=== PATIENT | male | born 1935 | race Hispanic/Latino ===

== ENCOUNTER 2023-02-24 20:04 | Emergency (ER) | payer OTHER ==
--- OUTSIDE RECORDS SUMMARY | 2023-02-24 20:10 | XMS REPORT | Continuity of Care Document ---
:1935 Author Organization [facility] t Address [address] [place] [address] [place] [id number] Care Team Providers Name Role Phone Alvino Mahan Attending Clinician Unavailable Payers Payer Name Policy Type Policy Number Effective Date Expiration Date S vince Blue [place] Blue 6 [id number] 2021 [facility] [employer] of [place] 00:00:[address] [facility] MEDICARE MB [id number] 1998 [facility] MEDICARE MB [id number] 1998 [facility] NOVITAS 00:00:00 [facility] Problems Condition Condition Condition Status Onset Resolution Last Treating Co mments Source Name Details Category Date Date Treatment Clinician Date [id number] Primary Problem Comm on osteoarthr Spirit itis of - [facility]I right [facility] [id number] Primary Problem Comm on osteoarthr Spirit itis of - [facility] left [facility] [id number] Type 2 Problem Commo n diabetes Spirit mellitus - [facility] with other [facility] kidney Medical complicati Center on [id number] Primary Problem Comm on osteoarthr Spirit itis of - CHI left knee [facility] Arthritis Arthritis Problem Com mon of both of both Spirit knees knees - [facility] [id number] Primary Problem Comm on osteoarthr Spirit itis of - [facility]I right knee [facility] [id number] Renal Problem Common insufficie Spirit ncy - [facility] [id number] Benign Problem Common prostatic Spirit [facility]plasi - [facility] symptoms present Peripheral Venous Problem Commo n venous insufficie Spirit insufficie ncy - CHI ncy [facility] Type II Diabetes Problem Common diabetes type 2, Spirit mellitus controlled - CH I well [facility] Obesity Other Problem Common obesity Spirit due to - [facility]I excess [facility] Essential Benign Problem Common hypertensi essential Spi rit on HTN - [facility] [id number] Body mass Problem Com mon index [facility] (BMI) - [facility] 32.0-32.9, [facility] [id number] +5th digit Problem Co mmon eff Spirit 12/30/19*Ch - CHI ronic [facility] disease, Medical stage 3 Center (moderate) [id number] Chronic Problem Common sinusitis, [facility] unspecifie - [facility] d location [facility] Osteoarthr Osteoarthr Problem C ommon itis of itis of Spirit multiple multiple - [facility] joints joints [facility] [id number] Stage 3a Problem Comm on chronic Spirit kidney - CHI disease [facility] Calculus Calculus Problem Commo n of kidney of kidney Spir it and ureter and ureter - [facility] [id number] Type 2 Problem Common diabetes Spirit mellitus - CHI with [facility] kidney Center disease [id number] 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 Social History Social Habit Start Date Stop Date Quantity Comments Source History of Tobacco Use Co mmon Spirit [facility] Sex Assigned At Com mon [facility] Smoking Status Start Date Stop Date Source Never Smoker Common [facility] Medications Ordered Filled Start Stop Current Ordering Indication Dosage Frequency Signature Comments Components Source Medication Medication Date Date Medication? Clinician (SIG) Name Name Bupivicaine Bupivicaine 2022-0 No 5mL Common [place] 6-06 Spirit 00:00: - [facility] Carter Kenalog 2022-0 No 1mL Common (Triamcinol (Triamcinol 6-06 S pirit one) one) 00:00: - CHI [facility] Bupivicaine Bupivicaine 2022-0 No 5mL Common [place] La Push 6-06 Spirit 00:00: - [facility] Kenalog Kenalog 2022-0 No 1mL Common (Triamcinol (Triamcinol 6-06 S pirit one) one) 00:00: - CHI 00 [facility] Bupivicaine Bupivicaine 2022-0 No 5mL Common La [place] La Push 6-06 Spirit 00:00: - CHI [facility] Carter Kenalog 2022-0 No 1mL Common (Triamcinol (Triamcinol 6-06 S pirit one) one) 00:00: - CHI 00 [facility] Bupivicaine Bupivicaine 2022-0 No 5mL Common [place] La Push 6-06 Spirit 00:00: - CHI 00 [facility] Kenalog Kenalog 2022-0 No 1mL Common (Triamcinol (Triamcinol 6-06 S pirit one) one) 00:00: - [facility]I [facility] Bupivicaine Bupivicaine 2022-0 No 5mL Common [place] La Push 6-06 Spirit 00:00: - CHI 00 [facility] Kenalog Kenalog 2022-0 No 1mL Common (Triamcinol (Triamcinol 6-06 S pirit one) one) 00:00: - [facility] Bupivicaine Bupivicaine 2022-0 No 5mL Common [place] La Push 6-06 Spirit 00:00: - CHI 00 [facility] Kenalog Kenalog 2022-0 No 1mL Common (Triamcinol (Triamcinol 6-06 S pirit one) one) 00:00: - CHI 00 [facility] Bupivicaine Bupivicaine 2022-0 No 5mL Common La [place] La Push 6-06 Spirit 00:00: - CHI 00 [facility] Kenalog Kenalog 2022-0 No 1mL Common (Triamcinol (Triamcinol 6-06 S pirit one) one) 00:00: - CHI 00 [facility] Bupivicaine Bupivicaine 2022-0 No 5mL Common La Push La Push 5-23 Spirit 00:00: - CHI 00 [facility] Kenalog Kenalog 2022-0 No 1mL Common (Triamcinol (Triamcinol 5-23 S pirit one) one) 00:00: - CHI 00 [facility] Bupivicaine Bupivicaine 2022-0 No 5mL Common La [place] La Push 5-23 Spirit 00:00: - CHI 00 [facility] Kenalog Kenalog 2022-0 No 1mL Common (Triamcinol (Triamcinol 5-23 S pirit one) one) 00:00: - CHI 00 [facility] Bupivicaine Bupivicaine 2022-0 No 5mL Common La Push La Push 5-23 Spirit 00:00: - CHI 00 [facility] Kenalog Kenalog 2022-0 No 1mL Common (Triamcinol (Triamcinol 5-23 S pirit one) one) 00:00: - CHI 00 [facility] Bupivicaine Bupivicaine 2022-0 No 5mL Common La Push La Push 5-23 Spirit 00:00: - CHI 00 [facility] Kenalog Kenalog 2022-0 No 1mL Common (Triamcinol (Triamcinol 5-23 S pirit one) one) 00:00: - CHI 00 [facility] Bupivicaine Bupivicaine 2022-0 No 5mL Common La Push La Push 5-23 Spirit 00:00: - CHI 00 [facility] Kenalog Kenalog 2022-0 No 1mL Common (Triamcinol (Triamcinol 5-23 S pirit one) one) 00:00: - CHI 00 [facility] Bupivicaine Bupivicaine 2022-0 No 5mL Common La Push La Push 5-23 Spirit 00:00: - CHI 00 [facility] Kenalog Kenalog 2022-0 No 1mL Common (Triamcinol (Triamcinol 5-23 S pirit one) one) 00:00: - CHI 00 [facility] Bupivicaine Bupivicaine 2022-0 No 5mL Common La Push La Push 5-23 Spirit 00:00: - CHI 00 [facility] Kenalog Kenalog 2022-0 No 1mL Common (Triamcinol (Triamcinol 5-23 S pirit one) one) 00:00: - CHI 00 [facility] Kenalog Kenalog 2022-0 No 1mL Common (Triamcinol (Triamcinol 2-23 S pirit one) one) 00:00: - CHI 00 [facility] Bupivicaine Bupivicaine 2022-0 No 4mL Common La Push La Push 2-23 Spirit 00:00: - CHI 00 [facility] Kenalog Kenalog 2022-0 No 1mL Common (Triamcinol (Triamcinol 2-23 S pirit one) one) 00:00: - CHI 00 [facility] Bupivicaine Bupivicaine 2022-0 No 4mL Common La Push La Push 2-23 Spirit 00:00: - CHI 00 [facility] Kenalog Kenalog 2022-0 No 1mL Common (Triamcinol (Triamcinol 2-23 S pirit one) one) 00:00: - CHI 00 [facility] Bupivicaine Bupivicaine 2022-0 No 4mL Common La Push La Push 2-23 Spirit 00:00: - CHI 00 [facility] Kenalog Kenalog 2022-0 No 1mL Common (Triamcinol (Triamcinol 2-23 S pirit one) one) 00:00: - CHI 00 [facility] Bupivicaine Bupivicaine 2022-0 No 4mL Common La Push La Push 2-23 Spirit 00:00: - CHI 00 [facility] Kenalog Kenalog 2022-0 No 1mL Common (Triamcinol (Triamcinol 2-23 S pirit one) one) 00:00: - CHI 00 [facility] Bupivicaine Bupivicaine 2022-0 No 4mL Common La Push La Push 2-23 Spirit 00:00: - CHI 00 [facility] Kenalog Kenalog 2022-0 No 1mL Common (Triamcinol (Triamcinol 2-23 S pirit one) one) 00:00: - CHI 00 [facility] Bupivicaine Bupivicaine 2022-0 No 4mL Common La Push La Push 2-23 Spirit 00:00: - CHI 00 [facility] Kenalog Kenalog 2022-0 No 1mL Common (Triamcinol (Triamcinol 2-23 S pirit one) one) 00:00: - CHI 00 [facility] Bupivicaine Bupivicaine 2022-0 No 4mL Common La Push La Push 2-23 Spirit 00:00: - CHI 00 [facility] Kenalog Kenalog 2021-0 No 40mg Common (Triamcinol (Triamcinol 8-09 S pirit one) one) 00:00: - CHI 00 [facility] Bupivicaine Bupivicaine 2021-0 No 2.5mg Common La Push La Push 8- Spirit 00:00: - CHI 00 [facility] Kenalog Kenalog 2021-0 No 40mg Common (Triamcinol (Triamcinol 8-09 S pirit one) one) 00:00: - CHI 00 [facility] Bupivicaine Bupivicaine 2021-0 No 2.5mg Common La Push La Push 8- Spirit 00:00: - CHI 00 [facility] Kenalog Kenalog 2021-0 No 40mg Common (Triamcinol (Triamcinol 8-09 S pirit one) one) 00:00: - CHI 00 [facility] Bupivicaine Bupivicaine 2021-0 No 2.5mg Common La Push La Push 8- Spirit 00:00: - CHI 00 [facility] Kenalog Kenalog 2021-0 No 40mg Common (Triamcinol (Triamcinol 8-09 S pirit one) one) 00:00: - CHI 00 [facility] Bupivicaine Bupivicaine 2021-0 No 2.5mg Common La Push La Push 8- Spirit 00:00: - CHI 00 [facility] Kenalog Kenalog 2021-0 No 40mg Common (Triamcinol (Triamcinol 8-09 S pirit one) one) 00:00: - CHI 00 [facility] Bupivicaine Bupivicaine 2-0 No 2.5mg Common La Push La Push 8 Spirit 00:00: - CHI 00 [facility] Kenalog Kenalog 2-0 No 40mg Common (Triamcinol (Triamcinol 8-09 S pirit one) one) 00:00: - CHI 00 [facility] Bupivicaine Bupivicaine 2-0 No 2.5mg Common La Push La Push 11-06 Spirit 00:00: - CHI 00 [facility] Kenalog Kenalog 2-0 No 40mg Common (Triamcinol (Triamcinol 8- S pirit one) one) 00:00: - CHI 00 [facility] Bupivicaine Bupivicaine 2-0 No 2.5mg Common La Push La Push 11-06 Spirit 00:00: - CHI 00 [facility] Kenalog Kenalog 2-0 No 40mg Common (Triamcinol (Triamcinol 8-09 S pirit one) one) 00:00: - CHI 00 [facility] Bupivicaine Bupivicaine 2-0 No 2.5mg Common La Push La Push 11-06 Spirit 00:00: - CHI 00 [facility] Kenalog Kenalog 2-0 No 40mg Common (Triamcinol (Triamcinol 8-09 S pirit one) one) 00:00: - CHI 00 [facility] Bupivicaine Bupivicaine 2-0 No 2.5mg Common La Push La Push 11-06 Spirit 00:00: - CHI 00 [facility] Kenalog Kenalog 2-0 No 40mg Common (Triamcinol (Triamcinol 8-09 S pirit one) one) 00:00: - CHI 00 [facility] Bupivicaine Bupivicaine 2-0 No 2.5mg Common La Push La Push 11-06 Spirit 00:00: - CHI 00 [facility] Bupivicaine Bupivicaine 2-0 No 2.5mg Common La Push La Push 10-22 Spirit 00:00: - CHI 00 [facility] Kenalog Kenalog 2021-0 No 40mg Common (Triamcinol (Triamcinol 7-25 S pirit one) one) 00:00: - CHI 00 [facility] Bupivicaine Bupivicaine 2021-0 No 2.5mg Common La Push La Push 7-25 Spirit 00:00: - CHI 00 [facility] Kenalog Kenalog 2021-0 No 40mg Common (Triamcinol (Triamcinol 7-25 S pirit one) one) 00:00: - CHI 00 [facility] Bupivicaine Bupivicaine 2021-0 No 2.5mg Common La Push La Push 7-25 Spirit 00:00: - CHI 00 [facility] Kenalog Kenalog 2021-0 No 40mg Common (Triamcinol (Triamcinol 7-25 S pirit one) one) 00:00: - CHI 00 [facility] Bupivicaine Bupivicaine 2021-0 No 2.5mg Common La Push La Push 7-25 Spirit 00:00: - CHI 00 [facility] Kenalog Kenalog 2021-0 No 40mg Common (Triamcinol (Triamcinol 7-25 S pirit one) one) 00:00: - CHI 00 [facility] Bupivicaine Bupivicaine 2021-0 No 2.5mg Common La Push La Push 7-25 Spirit 00:00: - CHI 00 [facility] Kenalog Kenalog 2021-0 No 40mg Common (Triamcinol (Triamcinol 7-25 S pirit one) one) 00:00: - CHI 00 [facility] Bupivicaine Bupivicaine 2021-0 No 2.5mg Common La Push La Push 7-25 Spirit 00:00: - CHI 00 [facility] Kenalog Kenalog 2021-0 No 40mg Common (Triamcinol (Triamcinol 7-25 S pirit one) one) 00:00: - CHI 00 [facility] Bupivicaine Bupivicaine 2021-0 No 2.5mg Common La Push La Push 7-25 Spirit 00:00: - CHI 00 [facility] Kenalog Kenalog 2021-0 No 40mg Common (Triamcinol (Triamcinol 7-25 S pirit one) one) 00:00: - CHI 00 [facility] Bupivicaine Bupivicaine 0 No 2.5mg Common La Push La Push 7-25 Spirit 00:00: - CHI 00 [facility] Kenalog Kenalog No 40mg Common (Triamcinol (Triamcinol 7-25 S pirit one) one) 00:00: - CHI 00 [facility] Bupivicaine Bupivicaine 0 No 2.5mg Common La Push La Push 7-25 Spirit 00:00: - CHI 00 [facility] Kenalog Kenalog No 40mg Common (Triamcinol (Triamcinol 7-25 S pirit one) one) 00:00: - CHI 00 [facility] Bupivicaine Bupivicaine 0 No 2.5mg Common La Push La Push 7-25 Spirit 00:00: - CHI 00 [facility] Kenalog Kenalog No 40mg Common (Triamcinol (Triamcinol 7-25 S pirit one) one) 00:00: - CHI 00 [facility] Bupivicaine Bupivicaine 0 No 2.5mg Common La Push La Push 7-25 Spirit 00:00: - CHI 00 [facility] Kenalog Kenalog No 40mg Common (Triamcinol (Triamcinol 7-25 S pirit one) one) 00:00: - CHI 00 [facility] Colchicine Colchicine 2018- Yes Alvino 2 caps x 1 Common 1-06 Mahan then 1 Spirit 00:00: caps po 1 - CHI 00 hour later [address] Kenalog Kenalog 2018-03 No 40mg Common (Triamcinol (Triamcinol 1-06 S pirit one) one) 00:00: - CHI 00 [facility] Kenalog Kenalog 2018- No 40mg Common (Triamcinol (Triamcinol 1-06 S pirit one) one) 00:00: - CHI 00 [facility] Kenalog Kenalog 2018-03 No 40mg Common (Triamcinol (Triamcinol 1-06 S pirit one) one) 00:00: - CHI 00 [facility] Carter Kenalog 2019- No 40mg Common (Triamcinol (Triamcinol 1-06 S pirit one) one) 00:00: - CHI 00 [facility] Carter Kenalog 2019- No 40mg Common (Triamcinol (Triamcinol 1-06 S pirit one) one) 00:00: - CHI 00 [facility] [place] Kenrené 2019- No 40mg Common (Triamcinol (Triamcinol 1-06 S pirit one) one) 00:00: - CHI 00 [facility] Carter Kenrené 2019- No 40mg Common (Triamcinol (Triamcinol 1-06 S pirit one) one) 00:00: - CHI 00 [facility] Carter Kenrené 2019- No 40mg Common (Triamcinol (Triamcinol 1-06 S pirit one) one) 00:00: - CHI 00 [facility] Carter Kenrené 2019- No 40mg Common (Triamcinol (Triamcinol 1-06 S pirit one) one) 00:00: - CHI 00 [facility] Carter Kenrené 2019- No 40mg Common (Triamcinol (Triamcinol 1-06 S pirit one) one) 00:00: - CHI 00 [facility] Carter Kenrené 2019- No 40mg Common (Triamcinol (Triamcinol 1-06 S pirit one) one) 00:00: - CHI 00 [facility] Kenrené Kenrené 2019- No 40mg Common (Triamcinol (Triamcinol 1-06 S pirit one) one) 00:00: - CHI 00 [facility] Kenrené Kenalog 2019- No 40mg Common (Triamcinol (Triamcinol 1-06 S pirit one) one) 00:00: - CHI 00 [facility] Kenrené Kenalog 2019- No 40mg Common (Triamcinol (Triamcinol 1-06 S pirit one) one) 00:00: - CHI 00 [facility] Carter Kenalog 2019- No 40mg Common (Triamcinol (Triamcinol 1-06 S pirit one) one) 00:00: - CHI 00 [facility] Metformin Metformin Yes Alvino 1 tablet Common HCl HCl Mahan with meals [facility] Tamsulosin Tamsulosin Yes Alvino TAKE 1 Common HCl HCl Mahan ORAL Spirit CAPSULE 2 - CHI TIMES [facility] Zestoretic Zestoretic Yes Alvino 1 tablet Common Mahan [facility] Aspir-81 Aspir-81 Yes Alvino 1 tablet C ommon Mahan [facility] Allopurinol Allopurinol Yes Alvino 1 tablet Common Mahan [facility] Aspirin 81 Aspirin 81 No 1{table QD Aspirin 81 81 MG 81 MG t} 81 MG Allopurinol Allopurinol No 1{table QD Allopurino 300 MG 300 MG t} l 300 MG Flomax 0.4 Flomax 0.4 No 1{capsu QD Flomax 0.4 MG MG le} MG Flomax 0.4 Flomax 0.4 No 1{capsu QD Flomax 0.4 MG MG le} MG Fluticasone Fluticasone No 1{spray QD Fluticason Propionate Propionate _in_eac e 50 MCG/ACT 50 MCG/ACT h_nostr Propionate il} 50 MCG/ACT Zestoretic Zestoretic No 1{table QD Zestoretic 20-12.5 MG 20-12.5 MG t} 20-12.5 MG Zestoretic Zestoretic No 1{table QD Zestoretic 20-12.5 MG 20-12.5 MG t} 20-12.5 MG Aspirin 81 Aspirin 81 No 1{table QD Aspirin 81 81 MG 81 MG t} 81 MG Lisinopril- Lisinopril- No Lisinopril hydroCHLORO hydroCHLORO -hydroCHLO thiazide thiazide ROthiazide 20-12.5 MG 20-12.5 MG 20-12.5 MG Flomax 0.4 Flomax 0.4 No 1{capsu QD Flomax 0.4 MG MG le} MG Tamsulosin Tamsulosin No Tamsulosin HCl 0.4 MG HCl 0.4 MG HCl 0.4 MG Fluticasone Fluticasone No 1{spray QD Fluticason Propionate Propionate _in_eac e 50 MCG/ACT 50 MCG/ACT h_nostr Propionate il} 50 MCG/ACT Allopurinol Allopurinol No Allopurino 300 MG 300 MG l 300 MG Zestoretic Zestoretic No 1{table QD Zestoretic 20-12.5 MG 20-12.5 MG t} 20-12.5 MG Flomax 0.4 Flomax 0.4 No 1{capsu QD Flomax 0.4 MG MG le} MG Zestoretic Zestoretic No 1{table QD Zestoretic 20-12.5 MG 20-12.5 MG t} 20-12.5 MG Lisinopril- Lisinopril- No 1{table QD Lisinopril hydroCHLORO hydroCHLORO t} -hydroCHLO thiazide thiazide ROthiazide 20-12.5 MG 20-12.5 MG 20-12.5 MG Allopurinol Allopurinol No 1{table QD Allopurino 300 MG 300 MG t} l 300 MG Flomax 0.4 Flomax 0.4 No 1{capsu QD Flomax 0.4 MG MG le} MG Zestoretic Zestoretic No 1{table QD Zestoretic 20-12.5 MG 20-12.5 MG t} 20-12.5 MG Lisinopril- Lisinopril- No 1{table QD Lisinopril hydroCHLORO hydroCHLORO t} -hydroCHLO thiazide thiazide ROthiazide 20-12.5 MG 20-12.5 MG 20-12.5 MG Allopurinol Allopurinol No 1{table QD Allopurino 300 MG 300 MG t} l 300 MG Lisinopril- Lisinopril- No 1{table QD Lisinopril hydroCHLORO hydroCHLORO t} -hydroCHLO thiazide thiazide ROthiazide 20-12.5 MG 20-12.5 MG 20-12.5 MG Zestoretic Zestoretic No 1{table QD Zestoretic 20-12.5 MG 20-12.5 MG t} 20-12.5 MG Flomax 0.4 Flomax 0.4 No 1{capsu QD Flomax 0.4 MG MG le} MG Aspirin Aspirin No Aspirin Allopurinol Allopurinol No 1{table QD Allopurino 300 MG 300 MG t} l 300 MG Allopurinol Allopurinol No 1{table QD Allopurino 300 MG 300 MG t} l 300 MG Aspirin Aspirin No Aspirin Flomax 0.4 Flomax 0.4 No 1{capsu QD Flomax 0.4 MG MG le} MG Zestoretic Zestoretic No 1{table QD Zestoretic 20-12.5 MG 20-12.5 MG t} 20-12.5 MG Lisinopril- Lisinopril- No 1{table QD Lisinopril hydroCHLORO hydroCHLORO t} -hydroCHLO thiazide thiazide ROthiazide 20-12.5 MG 20-12.5 MG 20-12.5 MG Zestoretic Zestoretic No 1{table QD Zestoretic 20-12.5 MG 20-12.5 MG t} 20-12.5 MG Allopurinol Allopurinol No Allopurino 300 MG 300 MG l 300 MG Aspirin Aspirin No Aspirin Tamsulosin Tamsulosin No Tamsulosin HCl 0.4 MG HCl 0.4 MG HCl 0.4 MG Flomax 0.4 Flomax 0.4 No 1{capsu QD Flomax 0.4 MG MG le} MG Lisinopril- Lisinopril- No Lisinopril hydroCHLORO hydroCHLORO -hydroCHLO thiazide thiazide ROthiazide 20-12.5 MG 20-12.5 MG 20-12.5 MG Zestoretic Zestoretic No 1{table QD Zestoretic 20-12.5 MG 20-12.5 MG t} 20-12.5 MG Allopurinol Allopurinol No Allopurino 300 MG 300 MG l 300 MG metFORMIN metFORMIN No 1{table QD metFORMIN HCl 500 MG HCl 500 MG t_with_ HCl 500 MG a_meal} Tamsulosin Tamsulosin No Tamsulosin HCl 0.4 MG HCl 0.4 MG HCl 0.4 MG Allopurinol Allopurinol No 1{table QD Allopurino 300 MG 300 MG t} l 300 MG Aspirin Aspirin No Aspirin Flomax 0.4 Flomax 0.4 No 1{capsu QD Flomax 0.4 MG MG le} MG Lisinopril- Lisinopril- No Lisinopril hydroCHLORO hydroCHLORO -hydroCHLO thiazide thiazide ROthiazide 20-12.5 MG 20-12.5 MG 20-12.5 MG Tamsulosin Tamsulosin No Tamsulosin HCl 0.4 MG HCl 0.4 MG HCl 0.4 MG Allopurinol Allopurinol No Allopurino 300 MG 300 MG l 300 MG Aspirin Aspirin No Aspirin metFORMIN metFORMIN No metFORMIN HCl 500 MG HCl 500 MG HCl 500 MG Lisinopril- Lisinopril- No Lisinopril hydroCHLORO hydroCHLORO -hydroCHLO thiazide thiazide ROthiazide 20-12.5 MG 20-12.5 MG 20-12.5 MG Allopurinol Allopurinol No 1{table QD Allopurino 300 MG 300 MG t} l 300 MG Tamsulosin Tamsulosin No Tamsulosin HCl 0.4 MG HCl 0.4 MG HCl 0.4 MG Allopurinol Allopurinol No Allopurino 300 MG 300 MG l 300 MG Aspirin Aspirin No Aspirin metFORMIN metFORMIN No metFORMIN HCl 500 MG HCl 500 MG HCl 500 MG Lisinopril- Lisinopril- No Lisinopril hydroCHLORO hydroCHLORO -hydroCHLO thiazide thiazide ROthiazide 20-12.5 MG 20-12.5 MG 20-12.5 MG Allopurinol Allopurinol No 1{table QD Allopurino 300 MG 300 MG t} l 300 MG Tamsulosin Tamsulosin No Tamsulosin HCl 0.4 MG HCl 0.4 MG HCl 0.4 MG Allopurinol Allopurinol No Allopurino 300 MG 300 MG l 300 MG Aspirin Aspirin No Aspirin metFORMIN metFORMIN No metFORMIN HCl 500 MG HCl 500 MG HCl 500 MG Lisinopril- Lisinopril- No Lisinopril hydroCHLORO hydroCHLORO -hydroCHLO thiazide thiazide ROthiazide 20-12.5 MG 20-12.5 MG 20-12.5 MG Allopurinol Allopurinol No 1{table QD Allopurino 300 MG 300 MG t} l 300 MG Tamsulosin Tamsulosin No Tamsulosin HCl 0.4 MG HCl 0.4 MG HCl 0.4 MG Allopurinol Allopurinol No Allopurino 300 MG 300 MG l 300 MG Aspirin Aspirin No Aspirin metFORMIN metFORMIN No metFORMIN HCl 500 MG HCl 500 MG HCl 500 MG Lisinopril- Lisinopril- No Lisinopril hydroCHLORO hydroCHLORO -hydroCHLO thiazide thiazide ROthiazide 20-12.5 MG 20-12.5 MG 20-12.5 MG Allopurinol Allopurinol No 1{table QD Allopurino 300 MG 300 MG t} l 300 MG Tamsulosin Tamsulosin No Tamsulosin HCl 0.4 MG HCl 0.4 MG HCl 0.4 MG Allopurinol Allopurinol No Allopurino 300 MG 300 MG l 300 MG Aspirin Aspirin No Aspirin metFORMIN metFORMIN No metFORMIN HCl 500 MG HCl 500 MG HCl 500 MG Lisinopril- Lisinopril- No Lisinopril hydroCHLORO hydroCHLORO -hydroCHLO thiazide thiazide ROthiazide 20-12.5 MG 20-12.5 MG 20-12.5 MG Allopurinol Allopurinol No 1{table QD Allopurino 300 MG 300 MG t} l 300 MG Tamsulosin Tamsulosin No Tamsulosin HCl 0.4 MG HCl 0.4 MG HCl 0.4 MG Allopurinol Allopurinol No Allopurino 300 MG 300 MG l 300 MG Aspirin Aspirin No Aspirin metFORMIN metFORMIN No metFORMIN HCl 500 MG HCl 500 MG HCl 500 MG Lisinopril- Lisinopril- No Lisinopril hydroCHLORO hydroCHLORO -hydroCHLO thiazide thiazide ROthiazide 20-12.5 MG 20-12.5 MG 20-12.5 MG Allopurinol Allopurinol No 1{table QD Allopurino 300 MG 300 MG t} l 300 MG Tamsulosin Tamsulosin No Tamsulosin HCl 0.4 MG HCl 0.4 MG HCl 0.4 MG Allopurinol Allopurinol No Allopurino 300 MG 300 MG l 300 MG Aspirin Aspirin No Aspirin metFORMIN metFORMIN No metFORMIN HCl 500 MG HCl 500 MG HCl 500 MG Lisinopril- Lisinopril- No Lisinopril hydroCHLORO hydroCHLORO -hydroCHLO thiazide thiazide ROthiazide 20-12.5 MG 20-12.5 MG 20-12.5 MG Allopurinol Allopurinol No 1{table QD Allopurino 300 MG 300 MG t} l 300 MG Allopurinol Allopurinol No Allopurino 300 MG 300 MG l 300 MG Flomax 0.4 Flomax 0.4 No 1{capsu QD Flomax 0.4 MG MG le} MG Allopurinol Allopurinol No 1{table QD Allopurino 300 MG 300 MG t} l 300 MG Zestoretic Zestoretic No 1{table QD Zestoretic 20-12.5 MG 20-12.5 MG t} 20-12.5 MG Allopurinol Allopurinol No 1{table QD Allopurino 300 MG 300 MG t} l 300 MG Flomax 0.4 Flomax 0.4 No 1{capsu QD Flomax 0.4 MG MG le} MG Allopurinol Allopurinol No Allopurino 300 MG 300 MG l 300 MG Zestoretic Zestoretic No 1{table QD Zestoretic 20-12.5 MG 20-12.5 MG t} 20-12.5 MG Flomax Flomax 2020- No Alvino 1 capsule Com 01-21 [facility] 00:00 - [facility] :00 [facility] Immunizations Ordered Filled Immunization Date Status Comments [facility] e [facility] [address] 2021-02-28 Completed [facility] Vaccine (Low Dose Vaccine (Low Dose 11:58:00 - [facility]28 Com[facility] Vaccine (Low Dose Vaccine (Low Dose 11:58:00 - [facility] Booster[facility] Booster) [facility] [facility]-02-28 Completed [facility] Vaccine (Low Dose Vaccine (Low Dose 11:58:00 - [facility] Booster) Booster) [facility] [address] [facility] 2021-02-28 Completed [facility] Vaccine (Low Dose Vaccine (Low Dose 11:58:00 - [facility] Booster) Booster) [facility] COVID[address] [facility] 2021-02-28 Completed [facility] Vaccine (Low Dose Vaccine (Low Dose 11:58:00 - [facility] Booster) Booster) [facility] [address] [facility] 2021-02-28 Completed [facility] Vaccine (Low Dose Vaccine (Low Dose 11:58:00 - [facility] Booster) Booster) [facility] [address] [facility] 2021-02-28 Completed [facility] Vaccine (Low Dose Vaccine (Low Dose 11:58:00 - [facility] Booster) Booster) [facility] Moderna COVID-19 Moderna COVID-19 2021-02-28 Completed [facility] Vaccine (Low Dose Vaccine (Low Dose 11:58:00 - [facility] Booster) Booster) [facility] Moderna COVID-19 Moderna COVID-19 2021-02-28 Completed [facility] Vaccine (Low Dose Vaccine (Low Dose 11:58:00 - [facility] Booster) Booster) [facility] Fluzone Fluzone 2021-02-20 Completed [facility] 09:33:00 - [facility] Fluzone Fluzone 2021-02-20 Completed [facility] 09:33:00 [facility] Fluzone Fluzone 2021-02-20 Completed [facility] 09:33:00 [facility] Fluzone Fluzone 2021-02-20 Completed [facility] 09:33:00 [facility] Fluzone Fluzone 2021-02-20 Completed [facility] 09:33:00 [facility] Fluzone Fluzone 2021-02-20 Completed [facility] 09:33:00 - [facility] Fluzone Fluzone 2021-02-20 Completed [facility] 09:33:00 [facility] Fluzone Fluzone 2021-02-20 Completed [facility] 09:33:00 [facility] Fluzone Fluzone 2021-02-20 Completed [facility] 09:33:00 [facility] Fluzone Fluzone 2021-02-20 Com[facility] COVID-19 2020-07-18 Completed [facility] Vaccine Vaccine 12:00:00 [facility] Moderna COVID-19 Moderna COVID-19 2020-07-18 Completed [facility] Vaccine Vaccine 12:00:00 [facility] Moderna COVID-19 Moderna COVID-19 2020-07-18 Completed [facility] Vaccine Vaccine 12:00:00 [facility] Moderna COVID-19 Moderna COVID-19 2020-07-18 Completed [facility] Vaccine Vaccine 12:00:00 - [facility] Moderna COVID-19 Moderna COVID-19 2020-07-18 Completed [facility] Vaccine Vaccine 12:00:00 - [facility] Moderna COVID-19 Moderna COVID-19 2020-07-18 Completed [facility] Vaccine Vaccine 12:00:00 - [facility] Moderna COVID-19 Moderna COVID-19 2020-07-18 Completed [facility] Vaccine Vaccine 12:00:00 - [facility] Moderna COVID-19 Moderna COVID-19 2020-07-18 Completed [facility] Vaccine Vaccine 12:00:00 - [facility] Moderna COVID-19 Moderna COVID-19 2020-07-18 Completed [facility] Vaccine Vaccine 12:00:00 - [facility] Moderna COVID-19 Moderna COVID-19 2020-05-31 Completed [facility] Vaccine Vaccine 11:59:00 - [facility] Moderna COVID-19 Moderna COVID-19 2020-05-31 Completed [facility] Vaccine Vaccine 11:59:00 - [facility] Moderna COVID-19 Moderna COVID-19 2020-05-31 Completed [facility] Vaccine Vaccine 11:59:00 - [facility] Moderna COVID-19 Moderna COVID-19 2020-05-31 Completed [facility] Vaccine Vaccine 11:59:00 - [facility] Moderna COVID-19 Moderna COVID-19 2020-05-31 Completed [facility] Vaccine Vaccine 11:59:00 - [facility] Moderna COVID-19 Moderna COVID-19 2020-05-31 Completed [facility] Vaccine Vaccine 11:59:00 - [facility] Moderna COVID-19 Moderna COVID-19 2020-05-31 Completed [facility] Vaccine Vaccine 11:59:00 - [facility] Moderna COVID-19 Moderna COVID-19 2020-05-31 Completed [facility] Vaccine Vaccine 11:59:00 - [facility] Moderna COVID-19 Moderna COVID-19 2020-05-31 Completed [facility] Vaccine Vaccine 11:59:00 - [facility] FluAD FluAD 2020-01-27 Completed [facility] 14:12:00 - [facility] FluAD FluAD 2020-01-27 Completed [facility] 14:12:00 - [facility] FluAD FluAD 2020-01-27 Completed [facility] 14:12:00 - [facility] FluAD FluAD 2020-01-27 Completed [facility] 14:12:00 - [facility] FluAD FluAD 2020-01-27 Completed [facility] 14:12:00 - [facility] FluAD FluAD 2020-01-27 Completed [facility] 14:12:00 - [facility] FluAD FluAD 2020-01-27 Completed [facility] 14:12:00 - [facility] FluAD FluAD 2020-01-27 Completed [facility] 14:12:00 - [facility] FluAD FluAD 2020-01-27 Completed [facility] 14:12:00 - [facility] FluAD FluAD 2020-01-27 Completed [facility] 14:12:00 - [facility] FluAD FluAD 2018-02-23 Completed [facility] 13:27:00 - [facility] FluAD FluAD 2018-02-23 Completed [facility] 13:27:00 - [facility] FluAD FluAD 2018-02-23 Completed [facility] 13:27:00 - [facility] FluAD FluAD 2018-02-23 Completed [facility] 13:27:00 - [facility] FluAD FluAD 2018-02-23 Completed [facility] 13:27:00 - [facility] FluAD FluAD 2018-02-23 Completed [facility] 13:27:00 - [facility] FluAD FluAD 2018-02-23 Completed [facility] 13:27:00 - [facility] FluAD FluAD 2018-02-23 Completed [facility] 13:27:00 - [facility] FluAD FluAD 2018-02-23 Completed [facility] 13:27:00 - [facility] FluAD FluAD 2018-02-23 Completed [facility] 13:27:00 - [facility] Prevnar 20 (PCV20) Prevnar 20 (PCV20) Unknown Completed [facility] Moderna COVID-19 Moderna COVID-19 Unknown Completed [facility] Vaccine (Low Dose Vaccine (Low Dose - [facility] Booster) Booster) [facility] Moderna COVID-19 Moderna COVID-19 Unknown Completed [facility] Vaccine Vaccine [facility] Moderna COVID-19 Moderna COVID-19 Unknown [facility] FluAD FluAD Unknown Completed [facility] FluAD FluAD Unknown Completed [facility] Fluzone Fluzone Unknown Completed [facility] Prevnar 20 (PCV20) Prevnar 20 (PCV20) Unknown [facility]-19 Unknown Com[facility] Vaccine (Low Dose Vaccine (Low Dose - [facility] Booster) Booster) [facility] Moderna COVID-19 Moderna COVID-19 Unknown Completed [facility] Vaccine Vaccine [facility] Moderna COVID-19 Moderna COVID-19 Unknown Completed [facility] FluAD FluAD Unknown Completed [facility] FluAD FluAD Unknown Completed [facility] Fluzone Fluzone Unknown Completed [facility] Prevnar 20 (PCV20) Prevnar 20 (PCV20) Unknown Completed [facility] Moderna COVID-19 Moderna COVID-19 Unknown Completed [facility] Vaccine (Low Dose Vaccine (Low Dose - [facility] Booster) Booster) [facility] Moderna COVID-19 Moderna COVID-19 Unknown Completed [facility] Vaccine Vaccine [facility] Moderna COVID-19 Moderna COVID-19 Unknown Completed [facility] FluAD FluAD Unknown Completed [facility] FluAD FluAD Unknown Completed [facility] Fluzone Fluzone Unknown Completed [facility] Prevnar 20 (PCV20) Prevnar 20 (PCV20) Unknown Completed [facility] Moderna COVID-19 Moderna COVID-19 Unknown Completed [facility] Vaccine (Low Dose Vaccine (Low Dose - [facility] Booster) Booster) [facility] Moderna COVID-19 Moderna COVID-19 Unknown Completed [facility] Vaccine Vaccine - [facility] Moderna COVID-19 Moderna COVID-19 Unknown Completed [facility] Vaccine Vaccine [facility] FluAD FluAD Unknown Completed [facility] FluAD FluAD Unknown Completed [facility] Fluzone Fluzone Unknown Completed [facility] Prevnar 20 (PCV20) Prevnar 20 (PCV20) Unknown [facility] COVID-19 Unknown Completed [facility] Vaccine (Low Dose Vaccine (Low Dose - [facility] Booster) Booster) [facility] COVID-19 Unknown Completed [facility] Vaccine Vaccine [facility] Moderna COVID-19 Moderna COVID-19 Unknown Completed [facility] Vaccine Vaccine [facility] FluAD FluAD Unknown Completed [facility] FluAD FluAD Unknown Completed [facility] Fluzone Fluzone Unknown Completed [facility] Prevnar 20 (PCV20) Prevnar 20 (PCV20) Unknown Completed [facility] Moderna COVID-19 Moderna COVID-19 Unknown Completed [facility] Vaccine (Low Dose Vaccine (Low Dose - [facility] Booster) Booster) [facility] Moderna COVID-19 Moderna COVID-19 Unknown Completed [facility] Vaccine Vaccine [facility] Moderna COVID-19 Moderna COVID-19 Unknown Completed [facility] Vaccine Vaccine [facility] FluAD FluAD Unknown Completed [facility] FluAD FluAD Unknown Completed [facility] Fluzone Fluzone Unknown Completed [facility] Prevnar 20 (PCV20) Prevnar 20 (PCV20) Unknown Completed [facility] COVID-19 [facility] COVID[facility]19 Unknown Completed [facility] Vaccine (Low Dose Vaccine (Low Dose - [facility] Booster) Booster) [facility] COVID19 Moderna COVID-19 Unknown Completed [facility] Vaccine Vaccine - [facility] COVID19 [facility] COVID-19 Unknown Completed [facility] Vaccine Vaccine - [facility] FluAD FluAD Unknown Completed [facility] FluAD FluAD Unknown Completed [facility] Fluzone Fluzone Unknown Completed [facility] Vital Signs Vital Name Observation Time Observation Value Comments Source height 2022-09-03 13:45:00 65 [in_i] [facility] weight 2022-09-03 13:45:00 177 [lb_av] [facility] temperature 2022-09-03 13:45:00 98.4 [degF] [facility] bmi 2022-09-03 13:45:00 29.45 kg/m2 [facility] blood pressure 2022-09-03 13:45:00 128 mm[Hg] [facility] - systolic [facility] blood pressure 2022-09-03 13:45:00 80 mm[Hg] [facility] - diastolic [facility] height 2022-08-20 13:30:00 65 [in_i] [facility] weight 2022-08-20 13:30:00 177 [lb_av] [facility] temperature 2022-08-20 13:30:00 98.4 [degF] [facility] bmi 2022-08-20 13:30:00 29.45 kg/m2 [facility] blood pressure 2022-08-20 13:30:00 128 mm[Hg] [facility] - systolic [facility] blood pressure 2022-08-20 13:30:00 80 mm[Hg] [facility] - diastolic [facility] height 2022-08-05 14:00:00 65 [in_i] [facility] - [facility] weight 2022-08-05 14:00:00 177 [lb_av] [facility] temperature 2022-08-05 14:00:00 97.6 [degF] [facility] - [facility] bmi 2022-08-05 14:00:00 29.45 kg/m2 [facility] - [facility] blood pressure 2022-08-05 14:00:00 132 mm[Hg] [facility] - systolic [facility] blood pressure 2022-08-05 14:00:00 74 mm[Hg] [facility] - diastolic [facility] height 2022-07-23 13:10:00 65 [in_i] [facility] weight 2022-07-23 13:10:00 179 [lb_av] [facility] temperature 2022-07-23 13:10:00 98.6 [degF] [facility] bmi 2022-07-23 13:10:00 29.78 kg/m2 [facility] oximetry 2022-07-23 13:10:00 97 % [facility] respiratory rate 2022-07-23 13:10:00 18 /min [facility] - [facility] blood pressure 2022-07-23 13:10:00 126 mm[Hg] [facility] - systolic [facility] blood pressure 2022-07-23 13:10:00 67 mm[Hg] [facility] - diastolic [facility] height 2022-05-23 11:00:00 65 [in_i] [facility] weight 2022-05-23 11:00:00 177 [lb_av] [facility] temperature 2022-05-23 11:00:00 98.3 [degF] [facility] bmi 2022-05-23 11:00:00 29.45 kg/m2 [facility] - [facility] blood pressure 2022-05-23 11:00:00 136 mm[Hg] [facility] - systolic [facility] blood pressure 2022-05-23 11:00:00 74 mm[Hg] [facility] - diastolic [facility] height 2022-04-23 13:10:00 65 [in_i] [facility] weight 2022-04-23 13:10:00 180.3 [lb_av] [facility] - [facility] temperature 2022-04-23 13:10:00 97.1 [degF] [facility] bmi 2022-04-23 13:10:00 30 kg/m2 [facility] oximetry 2022-04-23 13:10:00 99 % [facility] respiratory rate 2022-04-23 13:10:00 18 /min [facility] - [facility] blood pressure 2022-04-23 13:10:00 131 mm[Hg] [facility] - systolic [facility] blood pressure 2022-04-23 13:10:00 70 mm[Hg] [facility] - diastolic [facility] height 2021-11-20 14:30:00 65 [in_i] [facility] weight 2021-11-20 14:30:00 178 [lb_av] [facility] - [facility] temperature 2021-11-20 14:30:00 97.2 [degF] [facility] bmi 2021-11-20 14:30:00 29.62 kg[facility]m2 [facility] 2021-11-20 14:30:00 138 mm[Hg] [facility] - systolic [facility] blood pressure 2021-11-20 14:30:00 78 mm[Hg] [facility] - diastolic [facility] height 2021-11-06 15:00:00 65 [in_i] [facility] - [facility] weight 2021-11-06 15:00:00 180 [lb_av] [facility] - [facility] bmi 2021-11-06 15:00:00 29.95 kg/m2 [facility] - [facility] blood pressure 2021-11-06 15:00:00 136 mm[Hg] [facility] - systolic [facility] blood pressure 2021-11-06 15:00:00 74 mm[Hg] [facility] - diastolic [facility] height 2021-10-22 14:30:00 65 [in_i] [facility] - [facility] weight 2021-10-22 14:30:00 179 [lb_av] [facility] temperature 2021-10-22 14:30:00 98.6 [degF] [facility] - [facility] bmi 2021-10-22 14:30:00 29.78 kg/m2 [facility] - [facility] blood pressure 2021-10-22 14:30:00 132 mm[Hg] [facility] - systolic [facility] blood pressure 2021-10-22 14:30:00 82 mm[Hg] [facility] - diastolic [facility] height 2021-10-03 10:50:00 65 [in_i] [facility] weight 2021-10-03 10:50:00 178.9 [lb_av] [facility] - [facility] temperature 2021-10-03 10:50:00 98.2 [degF] [facility] bmi 2021-10-03 10:50:00 29.77 kg/m2 [facility] S [facility] oximetry 2021-10-03 10:50:00 97 % [facility] 2021-10-03 10:50:00 17 /min Comm on [facility] blood pressure 2021-10-03 10:50:00 138 mm[Hg] [facility] - systolic [facility] blood pressure 2021-10-03 10:50:00 62 mm[Hg] [facility] - diastolic [facility] height 2021-05-23 08:20:00 65 [in_i] Common [facility] weight 2021-05-23 08:20:00 183 [lb_av] [facility] temperature 2021-05-23 08:20:00 97.5 [degF] Common [facility] bmi 2021-05-23 08:20:00 30.45 kg/m2 [facility] oximetry 2021-05-23 08:20:00 99 % [facility] respiratory rate 2021-05-23 08:20:00 16 /min Comm on [facility] blood pressure 2021-05-23 08:20:00 147 mm[Hg] [facility] - systolic [facility] blood pressure 2021-05-23 08:20:00 67 mm[Hg] [facility] - diastolic [facility] height 2021-02-20 09:40:00 65 [in_i] [facility] weight 2021-02-20 09:40:00 176.7 [lb_av] [facility] temperature 2021-02-20 09:40:00 98.1 [degF] [facility] bmi 2021-02-20 09:40:00 29.4 kg/m2 [facility] oximetry 2021-02-20 09:40:00 99 % [facility] respiratory rate 2021-02-20 09:40:00 18 /min Comm on [facility] blood pressure 2021-02-20 09:40:00 132 mm[Hg] [facility] - systolic [facility] blood pressure 2021-02-20 09:40:00 72 mm[Hg] Common [facility] diastolic [facility] Procedures This patient has no known procedures. Encounters Start End Encounter Admission Attending Care Care Encounter Source Date/Time Date/Time Type Type Clinicians Facility Department ID 2022-11-12 Outpatient [facility], STLMLC STLMLC [id number] Common 13:49:00 Alvino [id number] [facility] 2022-10-17 Outpatient [facility], STLMLC STLMLC [id number] Common 13:34:00 Alvino [id number] [facility] 2022-08-08 Outpatient [facility], STLMLC STLMLC [id number] Common 08:25:00 Alvino [id number] [facility] 2022-07-18 Outpatient [facility], STLMLC STLMLC [id number] Common 15:51:00 Alvino [id number] [facility] 2022-07-17 Outpatient [facility], STLMLC STLMLC [id number] Common 09:58:00 Alvino [id number] [facility] 2022-05-23 Outpatient [facility], STLMLC STLMLC [id number] Common 11:12:00 Alvino [id number] [facility] 2022-05-21 Outpatient [facility], STLMLC STLMLC [id number] Common 14:31:00 Alvino [id number] [facility] 2022-04-23 Outpatient [facility], STLMLC STLMLC [id number] Common 13:11:00 Alvino [id number] [facility] 2021-10-22 Outpatient [facility], STLMLC STLMLC [id number] Common 14:42:01 Alvino [facility] 2021-09-13 Outpatient [facility], STLMLC STLMLC [id number] Common 14:02:00 Alvino [id number] [facility] 2021-05-23 Outpatient [facility], STLMLC STLMLC [id number] Common 08:04:01 Alvino [facility] 2021-04-25 Outpatient [facility], STLMLC STLMLC [id number] Common 14:22:13 Alvino [id number] [facility] 2021-04-25 Outpatient [facility], STLMLC STLMLC [id number] Common 14:19:17 Alvino [id number] [facility] 2021-04-25 Outpatient [facility], STLMLC STLMLC [id number] Common 14:16:47 Alvino [id number] [facility] 2021-04-25 Outpatient [facility], STLMLC STLMLC [id number] Common 12:52:45 Alvino [id number] [facility] 2021-04-25 Outpatient [facility], STLMLC STLMLC [id number] Common 12:49:23 Alvino [id number] [facility] 2021-04-25 Outpatient [facility], STLMLC STLMLC [id number] Common 12:20:19 Alvino [id number] [facility] 2021-04-25 Outpatient [facility], STLMLC STLMLC [id number] Common 11:19:29 Alvino [id number] [facility] 2021-04-25 Outpatient [facility], STLMLC STLMLC [id number] Common 11:18:31 Alvino [id number] [facility] 2021-04-25 Outpatient [facility], STLMLC STLMLC [id number] Common 11:02:40 Alvino [id number] [facility] 2022-09-03 2022-09-03 (IN/ASP) STLMLC STLMLC [id number] C ommon 00:00:00 00:00:00 INJ ASP [facility] 2022-08-20 2022-08-20 OFFICE STLMLC STLMLC [id number] Co mmon 00:00:00 00:00:00 VISIT [facility] ESTAB PT - [facility] LEVEL 4 [facility] 2022-08-19 2022-08-19 (TEL) STLMLC STLMLC [id number] Co mmon 00:00:00 00:00:00 [facility] 2022-08-05 2022-08-05 OFFICE STLMLC STLMLC [id number] Co mmon 00:00:00 00:00:00 VISIT [facility] ESTAB PT - [facility] LEVEL 4 [facility] 2022-07-23 2022-07-23 OFFICE STLMLC STLMLC [id number] Co mmon 00:00:00 00:00:00 VISIT [facility] ESTAB PT - [facility]I LEVEL 4 [facility] 2022-05-23 2022-05-23 OFFICE STLMLC STLMLC [id number] Co mmon 00:00:00 00:00:00 [facility]IT [facility] ESTAB PT - [facility] LEVEL 4 [facility] 2022-05-21 2022-05-21 (TEL) STLMLC STLMLC [id number] Co mmon 00:00:00 00:00:00 [facility] - [facility] 2022-04-23 2022-04-23 OFFICE STLMLC STLMLC [id number] Co mmon 00:00:00 00:00:00 VISIT [facility] ESTAB PT - [facility]I LEVEL 4 [facility] 2021-11-20 2021-11-20 OFFICE STLMLC STLMLC [id number] Co mmon 00:00:00 00:00:00 [facility]IT [facility] ESTAB PT - [facility]I LEVEL 4 [facility] 2021-11-06 2021-11-06 OFFICE STLMLC STLMLC [id number] Co mmon 00:00:00 00:00:00 VISIT [facility] ESTAB PT - CHI LEVEL 4 [facility] 2021-10-22 2021-10-22 OFFICE STLMLC STLMLC [id number] Co mmon 00:00:00 00:00:00 VISIT NEW Spir it PT LEVEL 4 - [facility] 2021-10-03 2021-10-03 OFFICE STLMLC STLMLC [id number] Co mmon 00:00:00 00:00:00 [facility] ESTAB PT - CHI LEVEL 4 [facility] 2021-10-03 2021-10-03 SUB ANNUAL STLMLC STLMLC [id number] Common 00:00:00 00:00:00 MCR [facility] WELLNESS - CHI VISIT [facility] 2021-09-13 2021-09-13 (TEL) STLMLC STLMLC [id number] Co mmon 00:00:00 00:00:00 [facility] - [facility] 2021-05-23 2021-05-23 OFFICE STLMLC STLMLC [id number] Co mmon 00:00:00 00:00:00 [facility]IT [facility] ESTAB PT - CHI LEVEL 4 [facility] 2021-02-28 2021-02-28 (COVID STLMLC STLMLC [id number] Co mmon 00:00:00 00:00:00 Inj) COVID Spi rit Injection [facility] 2021-02-20 2021-02-20 OFFICE STLMLC STLMLC [id number] Co mmon 00:00:00 00:00:00 VISIT [facility] PT [facility] LEVEL 4 [facility] 2020-10-16 2020-10-16 Outpatient STLMLC STLMLC [id number] Common 00:00:00 00:00:00 [facility] 2020-07-13 2020-07-13 Outpatient STLMLC STLMLC [id number] Common 00:00:00 00:00:00 [facility] 2020-04-14 2020-04-14 Outpatient STLMLC STLMLC [id number] Common 00:00:00 00:00:00 [facility] 2020-04-14 2020-04-14 Outpatient STLMLC STLMLC [id number] Common 00:00:00 00:00:00 [facility] 2020-04-13 2020-04-13 Outpatient STLMLC STLMLC [id number] Common 00:00:00 00:00:00 [facility] 2020-04-13 2020-04-13 Outpatient STLMLC STLMLC [id number] Common 00:00:00 00:00:00 [facility] 2020-01-27 2020-01-27 Outpatient STLMLC STLMLC [id number] Common 00:00:00 00:00:00 [facility] 2019-10-27 2019-10-27 [id number] Common 14:15:00 14:15:[address] [facility] 2019-07-28 2019-07-28 [id number] Common 14:30:00 14:30:[address] [address] [facility] 2019-04-29 2019-04-29 [facility] [id number] Common 13:15:00 13:15:[address] [facility] 2019-02-03 2019-02-03 [facility] [id number] Common 10:00:00 10:00:[address] [place] [address] [facility] 2019-01-27 2019-01-27 [facility] [id number] Common 13:00:00 13:00:[address] [facility] 2018-09-23 2018-09-23 [facility] [id number] Common 13:15:00 13:15:[address] [facility] 2018-07-06 2018-07-06 [facility] [id number] Common 16:00:00 16:00:[address] [facility] Results Test Description Test Time Test Comments Results Result Comments Source CBC W/AUTO DIFF 2022-10-14 00:00:00 Test Item Value Reference Range Interpretation Comme nts NUCLEATED RBCS (test code 0.0 /100 WBC'S See_Comment [Automated message] The = 81388-0) system which ge nerated this result transmit nettie reference range: 0.0 /100 WBC'S. The reference range was not used to interpret th is result as normal/abnormal . ABSOLUTE EOSINOPHILS (test 0.20 K/UL See_Comment [Automated message] The code = 79800-6) system which generated this result transmit nettie reference range: 0.00-0.5 0 K/UL. The reference range was not used to interpret th is result as normal/abnormal . ABSOLUTE LYMPHOCYTES (test 2.40 K/UL See_Comment [Automated message] The code = 72896-4) system which generated this result transmit nettie reference range: 1.00-4.0 0 K/UL. The reference range was not used to interpret th is result as normal/abnormal . ABSOLUTE MONOCYTES (test 0.76 K/UL See_Comment [A utomated message] The code = 67982-1) system which generated this result transmit nettie reference range: 0.20-1.0 0 K/UL. The reference range was not used to interpret th is result as normal/abnormal . ABSOLUTE NEUTROPHILS (test 6.03 K/UL See_Comment [Automated message] The code = 36339-8) system which generated this result transmit nettie reference range: 1.50-7.5 0 K/UL. The reference range was not used to interpret th is result as normal/abnormal . BASOPHILS (test code = 0.7 % 84641-5) EOSINOPHILS (test code = 2.1 % 42962-0) HEMATOCRIT (test code = 43.5 % See_Comment [Au tomated message] The ) system which [employer] nerated this result transmit nettie reference range: 40.0-51. 0 %. The reference range was not used to interpret th is result as normal/abnormal . HEMOGLOBIN (test code = 14.8 G/DL See_Comment [Au tomated message] The 8) system which [employer] nerated this result transmit nettie reference range: 13.5-17. 0 G/DL. The reference range was not used to interpret th is result as normal/abnormal . LYMPHOCYTES (test code = 25.0 % 41518-8) MCH (test code = 05094-9) 32.0 PG See_Comment [ Automated message] The system which [employer] nerated this result transmit nettie reference range: 25.0-33. 0 PG. The reference range was not used to interpret th is result as normal/abnormal . MCHC (test code = 24214-1) 34.0 G/DL See_Comment [Automated message] The system which [employer] nerated this result transmit nettie reference range: 31.0-36. 0 G/DL. The reference range was not used to interpret th is result as normal/abnormal . MCV (test code = 87968-8) 94.2 fL See_Comment [ Automated message] The system which [employer] nerated this result transmit nettie reference range: 80.0-99. 0 fL. The reference range was not used to interpret th is result as normal/abnormal . MONOCYTES (test code = 7.9 % 83192-3) NEUTROPHILS (test code = 62.9 % 66265-9) PLATELET COUNT (test code 289 K/UL See_Comment [ Automated message] The = 59678-1) system which [employer] nerated this result transmit nettie reference range: 130-400 K/UL. The reference range was not used to interpret th is result as normal/abnormal . RBC (test code = 99134-9) 4.62 M/UL See_Comment [ Automated message] The system which [employer] nerated this result transmit nettie reference range: 4.50-6.1 0 M/UL. The reference range was not used to interpret th is result as normal/abnormal . RDW (test code = 11078-8) 13.0 % See_Comment [ Automated message] The system which [employer] nerated this result transmit nettie reference range: 11.5-15. 0 %. The reference range was not used to interpret th is result as normal/abnormal . WBC (test code = 05259-6) 9.6 K/UL See_Comment [ Automated message] The system which [employer] nerated this result transmit nettie reference range: 3.5-11.0 K/UL. The reference range was not used to interpret th is result as normal/abnormal . [id number] 00:00:00 Test Item Value Reference Range Interpretation Comments MAGNESIUM (test code 1.9 MG/DL See_Comment [Autom ated message] = 42369-5) The system [facility] generated this result transmitted ref erence range: 1.6-2.6 MG/DL. The reference r trang was not used to int erpret this result as normal/abnormal . URIC [id number] 00:00:00 Test Item Value Reference Range Interpretation Comments URIC ACID (test 4.8 MG/DL See_Comment [Automated message] The code = 2501-5) system which generated this result tra nsmitted reference range : 3.7-8.0 MG/DL. The refe rence range was not u sed to interpret this result as normal/abnormal . HEMOGLOBIN [id number] 00:00:00 Test Item Value Reference Range Interpretation Comments HEMOGLOBIN A1c (test 6.4 % See_Comment H [Autom ated message] The code = 4548-4) system which generated this result tra nsmitted reference range : 4.2-5.6 %. The referenc e range was not used to interpret this result as normal/abnormal . LIPID [id number] 00:00:00 Test Item Value Reference Range Interpretation Comments CALC LDL CHOL (test 93 MG/DL See_Comment [Automa nettie message] code = 24584-7) The system [facility] generated this result transmit nettie reference range : <100 MG/DL. The reference range was not used to interpret this result as normal/abnormal . CHOLESTEROL (test code 159 MG/DL See_Comment [Aut omated message] = 3-3) The system [facility] generated this result transmit nettie reference range : <200 MG/DL. The reference range was not used to interpret this result as normal/abnormal . HDL CHOLESTEROL (test 46 MG/DL See_Comment [Auto mated message] code = 5-9) The system [facility] generated this result transmit nettie reference range : >39 MG/DL. The refe rence range was not u sed to interpret th is result as normal/abnormal . RISK RATIO LDL/HDL 2.02 RATIO See_Comment [Automat ed message] (test code = 51356-0) The sy stem which generated this result transmit nettie reference range : <3.55 RATIO. Th e reference range was not used to interpret this result as normal/abnormal . TRIGLYCERIDES (test 105 MG/DL See_Comment [Automa nettie message] code = 2571-8) The system [facility] generated this result transmit nettie reference range : <150 MG/DL. The reference range was not used to interpret this result as normal/abnormal . ALBUMIN/CREATININE RATIO, RANDOM [id number] 00:00:00 Test Item Value Reference Range Interpretation Comments ALBUMIN, URINE, 2.3 MG/DL NOT ESTAB MG/DL RANDOM (test code = 21213-7) CALC ALBUMIN/CREAT, 17 MG/G See_Comment [Automa nettie message] RND (test code = The system which 41297-6) generated this result transmitted ref erence range: <30 MG/G . The reference range was not used to interpr et this result as normal/abnormal . CREATININE, URINE, 133.2 MG/DL NOT ESTAB MG/DL CONC. (test code = 2161-8) COMPREHENSIVE METABOLIC [id number] 00:00:00 Test Item Value Reference Range Interpretation Comments ALBUMIN (test code = 4.1 G/DL See_Comment [Autom ated message] 1751-7) The system [facility] generated this result transmit nettie reference range : 3.5-5.2 G/DL. T he reference range was not used to interpret this result as normal/abnormal . ALKALINE PHOSPHATASE 83 U/L See_Comment [Autom ated message] (test code = 6768-6) The s tem which generated this result transmit nettie reference range : 40-125 U/L. The reference range was not used to interpret this result as normal/abnormal . BILIRUBIN, TOTAL 0.5 MG/DL See_Comment [Automated message] (test code = 1975-2) The [facility] tem which generated this result transmit nettie reference range : <=1.2 MG/DL. Th e reference range was not used to interpret this result as normal/abnormal . BUN (test code = 18 MG/DL See_Comment [Automated message] 3094-0) The system [facility] generated this result transmit nettie reference range : 8-23 MG/DL. The reference range was not used to interpret this result as normal/abnormal . CALCIUM (test code = 9.7 MG/DL See_Comment [Autom ated message] 03884-4) The system [facility] generated this result transmit nettie reference range : 8.5-10.5 MG/DL. The reference range was not used to interpret this result as normal/abnormal . CALC A/G RATIO (test 1.4 RATIO See_Comment [Autom ated message] code = 1759-0) The system [facility] generated this result transmit nettie reference range : 1.0-2.6 RATIO. The reference range was not used to interpret this result as normal/abnormal . CALC BUN/CREAT (test 18 RATIO See_Comment [Autom ated message] code = 3097-3) The system [facility] generated this result transmit nettie reference range : 6-28 RATIO. The reference range was not used to interpret this result as normal/abnormal . CALC GLOBULIN (test 3.0 G/DL See_Comment [Automa nettie message] code = 76172-5) The system [facility] generated this result transmit nettie reference range : 1.9-3.7 G/DL. T he reference range was not used to interpret this result as normal/abnormal . CARBON DIOXIDE (test 22 MEQ/L See_Comment [Autom ated message] code = 1963-8) The system [facility] generated this result transmit nettie reference range : 19-31 MEQ/L. Th e reference range was not used to interpret this result as normal/abnormal . CHLORIDE (test code 101 MEQ/L See_Comment [Automa nettie message] = 7895-0) The system [facility] generated this result transmit nettie reference range : 95-107 MEQ/L. T he reference range was not used to interpret this result as normal/abnormal . CREATININE (test 1.00 MG/DL See_Comment [Automated message] code = 2160-0) The system [employer] generated this result transmit nettie reference range : 0.80-1.40 MG/DL . The reference range was not used to interpret this result as normal/abnormal . eGFR (2020 CKD-EPI) 72 ML/MIN/1.73 See_Comment [Auto mated message] (test code = The system [facility] 50806-7) generated this result transmit nettie reference range : >60 ML/MIN/1.73. Th e reference range was not used to interpret this result as normal/abnormal . GLUCOSE (test code = 111 MG/DL See_Comment H [Autom ated message] 1558-6) The system [facility] generated this result transmit nettie reference range : 70-99 MG/DL. Th e reference range was not used to interpret this result as normal/abnormal . POTASSIUM (test code 4.6 MEQ/L See_Comment [Autom ated message] = 2823-3) The system [facility] generated this result transmit nettie reference range : 3.5-5.4 MEQ/L. The reference range was not used to interpret this result as normal/abnormal . PROTEIN, TOTAL (test 7.1 G/DL See_Comment [Autom ated message] code = 2885-2) The system [employer] generated this result transmit nettie reference range : 6.1-8.3 G/DL. T he reference range was not used to interpret this result as normal/abnormal . AST (test code = 19 U/L See_Comment [Automated message] 1920-8) The system [facility] generated this result transmit nettie reference range : 9-50 U/L. The reference range was not used to interpret this result as normal/abnormal . ALT (test code = 22 U/L See_Comment [Automated message] 1742-6) The system [facility] generated this result transmit nettie reference range : 5-50 U/L. The reference range was not used to interpret this result as normal/abnormal . SODIUM (test code = 139 MEQ/L See_Comment [Automa nettie message] 2951-2) The system [facility] generated this result transmit nettie reference range : 133-146 MEQ/L. The reference range was not used to interpret this result as normal/abnormal . HEMOGLOBIN [id number] 00:00:00 Test Item Value Reference Range Interpretation Comments A1C (test code = 4548-4) 6.5 HEMOGLOBIN [id number] 00:00:00 Test Item Value Reference Range Interpretation Comments A1C (test code = 4548-4) 5.8
[2023-02-24] MEDS ORDERED: IBUPROFEN 400 MG TAB ONE (21:04)
[2023-02-24] MEDS ORDERED: ACETAMINOPHEN 500 MG TAB ONE (21:04)
[2023-02-24] MEDS ORDERED: LIDOCAINE 1% 20 ML MDV ONE (21:04)
[2023-02-24] MEDS ORDERED: TDAP (DIPHTH,PERTUSS(ACELL),TET VAC) 0.5 ML VIAL IMVAC ONE (21:04)
--- NOTE | 2023-02-24 21:15 | RAD REPORT ---
EXAM DESCRIPTION: CT - [id number] - 02/24/2023 8:28 pm CLINICAL HISTORY: Fall, hit head CONFUSED COMPARISON: No comparisons TECHNIQUE: Axial thin cut noncontrast CT images of the head were obtained. Axial thin cut noncontrast CT images of the cervical spine were obtained. Multiplanar reformatted images were generated and reviewed. All CT scans are performed using dose optimization technique as appropriate and may include automated exposure control or mA/KV adjustment according to patient size. FINDINGS: CT HEAD WITHOUT CONTRAST: No acute hemorrhage, hydrocephalus or extra-axial collection is identified. Moderate diffuse parenchy mal volume loss. Mild periventricular and deep white matter nonspecific hypodensities, most suggestiv e of chronic small vessel ischemic changes. No areas of brain edema or midline shift. Biparietal sca lp swelling and small hematoma The paranasal sinuses and mastoids are clear.The calvarium is intact. CT CERVICAL SPINE WITHOUT CONTRAST: No fracture or subluxation.Multilevel degenerative changes with pronounced disc height loss at C5-6 a nd C6-7. Variable degrees of neural foraminal narrowing secondary to uncovertebral joint and facet ar thropathy, up to severe on the left at C6-7, and on the right at C3-4.No prevertebral soft tissues sw elling is identified. Irregular 2 cm medial left upper lobe nodule with extension to the pleura, not fully characterized. IMPRESSION: No acute traumatic intracranial or cervical spine findings. Irregular 2 cm medial left upper lobe nodule, raises concern for pulmonary malignancy. This can be fu rther evaluated by dedicated chest CT, which can be performed on a nonemergent basis. Chronic findings as above.
--- NOTE | 2023-02-24 21:41 | EDPHYS ---
Physician Documentation [facility] Name: Francis Goncalves Age: 87 yrs Sex: Male : 1935 Arrival Date: 02/24/2023 Time: 20:04 Bed 3 Private MD: ED Physician Stew Medel HPI: 02/24 20:17 This 87 yrs old Male presents to ER via EMS with complaints of head injury. sp4 20:17 87-year-old male presents with EMS after he stumbled fell backwards onto hardwood floor sp4 causing posterior scalp laceration. Patient denied taking blood thinners. Denied LOC, denied nausea vomiting or blurry vision. This has posterior head injury posterior scalp laceration there is no other injury based on the patient's report. GCS 15 on arrival. . 20:20 Patient is uncertain about his tetanus status. . sp4 Historical: - Allergies: 20:12 No Known Allergies; jj7 - PMHx: 20:12 Diabetes - NIDDM; Hypertension; jj7 - PSHx: 20:12 None; jj7 - Immunization history:: Adult Immunizations up to date. - Social history:: Smoking status: Patient denies any tobacco usage or history of. Patient/guardian denies using alcohol, street drugs. - Family history:: not pertinent. ROS: 20:17 Constitutional: Negative for fever, chills, and weight loss, positive acute fall sp4 positive , posterior scalp laceration positive, posterior head injury 20:17 All other systems are negative, Exam: 20:17 Constitutional: This is a well developed, well nourished patient who is awake, alert, sp4 and in no acute distress. Head/Face: Normocephalic, positive posterior head laceration 4 cm long vertical orientation occipital area. No active bleeding, no additional injury, no hematoma no deformity Eyes: Pupils equal round and reactive to light, extra-ocular motions intact. Lids and lashes normal. Conjunctiva and sclera are not injected. Cornea within normal limits. Periorbital areas with no swelling, redness, or edema. ENT: Nares patent. No nasal discharge, no septal abnormalities noted. Tympanic membranes are normal and external auditory canals are clear. Oropharynx with no redness, swelling, or masses, exudates, or evidence of obstruction, uvula midline. Mucous membranes moist. Neck: Trachea midline, no thyromegaly or masses palpated, and no cervical lymphadenopathy. Supple, full range of motion without nuchal rigidity, or vertebral point tenderness. Chest/axilla: Normal chest wall appearance and motion. Nontender with no deformity. No lesions are appreciated. Cardiovascular: Regular rate and rhythm with a normal S1 and S2. No gallops, murmurs, or rubs. Normal PMI, no JVD. No pulse deficits. Respiratory: Lungs have equal breath sounds bilaterally, clear to auscultation and percussion. No rales, rhonchi or wheezes noted. No increased work of breathing, no retractions or nasal flaring. Abdomen/GI: Soft, non-tender, with normal bowel sounds. No distension or tympany. No guarding or rebound. No evidence of tenderness throughout. Back: No spinal tenderness. No costovertebral tenderness. Skin: Warm, dry with normal turgor. Normal color with no rashes, no lesions, and no evidence of cellulitis. MS/ Extremity: Pulses equal, no cyanosis. Neurovascular intact. Full, normal range of motion. Neuro: Awake and alert, GCS 15, oriented to person, place, time, and situation. Cranial nerves II-XII grossly intact. Motor strength 5/5 in all extremities. Sensory grossly intact. Psych: Awake, alert, with orientation to person, place and time. Behavior, mood, and affect are within normal limits Vital Signs: 20:08 BP 181 / 93; Pulse 68; Resp 13; Temp 98.7; Pulse Ox 100% ; Weight 69 kg; Height 5 ft. 5 jj7 in. ; 21:30 BP 122 / 109; Pulse 76; Resp 19; Pulse Ox 97% ; Pain 0/10; jj7 20:08 Body Mass Index 25.31 (69.00 kg, 165.1 cm) jj7 21:30 Pain Scale: Adult jj7 Laceration: 21:42 Wound Repair of 4cm ( 1.6in ) subcutaneous laceration to scalp posterior occipital sp4 scalp . Irregularly shaped.. Moderate contamination.. Distal neuro/vascular/tendon intact. Anesthesia: Wound infiltrated with 20 mls of 1% lidocaine. Wound prep: Extensive cleansing by id, Copious irrigation. Skin closed with 8 3-0 Silk using interrupted sutures and sterile technique. Dressed with 4x4's, Kerlix. Patient tolerated well. MDM: 20:17 Patient medically screened. sp4 21:38 ED course: CT report - EXAM DESCRIPTION: CT - [id number] - 02/24/2023 8:28 pm CLINICAL sp4 HISTORY: Fall, hit head CONFUSED COMPARISON: No comparisons TECHNIQUE: Axial thin cut noncontrast CT images of the head were obtained. Axial thin cut noncontrast CT images of the cervical spine were obtained. Multiplanar reformatted images were generated and reviewed. All CT scans are performed using dose optimization technique as appropriate and may include automated exposure control or mA/KV adjustment according to patient size. FINDINGS: CT HEAD WITHOUT CONTRAST: No acute hemorrhage, hydrocephalus or extra-axial collection is identified. Moderate diffuse parenchymal volume loss. Mild periventricular and deep white matter nonspecific hypodensities, most suggestive of chronic small vessel ischemic changes. No areas of brain edema or midline shift. Biparietal scalp swelling and small hematoma The paranasal sinuses and mastoids are clear.The calvarium is intact. CT CERVICAL SPINE WITHOUT CONTRAST: No fracture or subluxation.Multilevel degenerative changes with pronounced disc height loss at C5-6 and C6-7. Variable degrees of neural foraminal narrowing secondary to uncovertebral joint and facet arthropathy, up to severe on the left at C6-7, and on the right at C3-4.No prevertebral soft tissues swelling is identified. Irregular 2 cm medial left upper lobe nodule with extension to the pleura, not fully characterized. IMPRESSION: No acute traumatic intracranial or cervical spine findings. Irregular 2 cm medial left upper lobe nodule, raises concern for pulmonary malignancy. This can be further evaluated by dedicated chest CT, which can be performed on a nonemergent basis. Chronic findings as above.. 21:42 Differential Diagnosis altered mental status, sepsis, flu. Data reviewed: vital signs, sp4 nurses notes, radiologic studies, CT scan. 21:43 ED course: Incidental finding of left pulmonary nodule-patient was advised to see his sp4 primary care physician ALLYN in the office for CT chest on outpatient basis. . 02/24 20:08 Order name: CT Head C Spine; Complete Time: 12:39 sp4 02/24 20:10 Order name: Dressing - Wound; Complete Time: 20:53 sp4 02/24 20:10 Order name: Gloves, Sterile; Complete Time: 20:53 sp4 02/24 20:10 Order name: Setup Suture Tray; Complete Time: 20:53 sp4 Administered Medications: 20:53 Drug: Acetaminophen PO 1000 mg PO once Route: PO; jj7 21:55 Follow up: Response: Marked relief of symptoms jj7 20:53 Drug: Ibuprofen PO 400 mg PO once Route: PO; jj7 21:55 Follow up: Response: Marked relief of symptoms jj7 20:58 Drug: Tetanus-Diphtheria Toxoid IM Adult 0.5 ml IM once; Provide Vaccine Information jj7 Statement (VIS). {Commercial Credit Lead: [employer]; Exp: Sun Nov 21 2024; Lot #: [id number]; Series: 1 of 1; Patient Consent: Obtained; Date/Time: ; Source Name: Francis Goncalves; Source Relationship: Self; Address Information: [address] [place] [address], [place] [address]; ; Education: Provided; VIS Presented Date: ; VIS Publication: Tetanus/Diphtheria (Td) Vaccine VIS 07/09/2016 (historic)} Route: IM; Site: right deltoid; 21:55 Follow up: Response: (VIS) Vaccine information sheet provided today. Questions and/or jj7 concerns addressed. VIS edition date: Nov 03, 2020.; No adverse reaction 21:15 Drug: Lidocaine Infiltration (1 %) 20 ml 20 ml Infiltration once; to bedside {Note: jj7 ADMIN BY DR HUGHES.} Volume: 20 ml; Route: Infiltration; 21:55 Drug: Meclizine PO 25 mg PO once Route: PO; jj7 22:00 Follow up: Response: No adverse reaction jj7 21:55 Drug: Ondansetron PO 4 mg PO once Route: PO; jj7 22:00 Follow up: Response: No adverse reaction jj7 Disposition Summary: 02/24/23 21:41 Discharge Ordered Problem: new sp4 Symptoms: have improved sp4 Condition: Stable sp4 Diagnosis - , Posterior scalp laceration, left lung pulmonary nodule, acute head injury, sp4 concussion without loss of consciousness Followup: sp4 - With: Private Physician - When: 5 - 6 days - Reason: Recheck today's complaints Discharge Instructions: - Discharge Summary Sheet sp4 - Pulmonary Nodule, [id number] sp4 Forms: - Patient Portal Instructions sp4 Prescriptions: - Zofran 4 mg Oral tablet - take 1 tablet ORAL route every 6 hours As needed PRN nausea; 30 tablet; sp4 Refills: 0, Product Selection Permitted Addendum: 02/26/2023 12:40 Addendum: Pulmonary nodule was discussed with patient in detail and patient is s p4 agreeable to get Chest CT on the outpatient basis for further evaluation. . Signatures: Dispatcher [employer] Mario Madison RN RN jj7 Stew Medel MD MD sp4
--- NOTE | 2023-02-24 21:41 | ER ---
Nurse's Notes [facility] Name: Francis Goncalves Age: 87 yrs Sex: Male : 1935 Arrival Date: 02/24/2023 Time: 20:04 Bed 3 Private MD: Diagnosis: , Posterior scalp laceration, left lung pulmonary nodule, acute head injury, concussion without loss of consciousness Presentation: 02/24 20:08 Chief complaint: Patient states: WAS GETTING UP OFF THE COUCH LOST HIS BALANCE AND jj7 FELL. HIT HEAD ON TILE FLOOR. NO LOC. LAC TO BACK OF HEAD. Coronavirus screen: At this time, the client does not indicate any symptoms associated with coronavirus-19. Ebola Screen: No symptoms or risks identified at this time. Initial Sepsis Screen: Does the patient meet any 2 criteria? No. Patient's initial sepsis screen is negative. Does the patient have a suspected source of infection? No. Patient's initial sepsis screen is negative. Risk Assessment: Do you want to hurt yourself or someone else? Patient reports no desire to harm self or others. Onset of symptoms was February 24, 2023. 20:08 Method Of Arrival: EMS: [facility] 7 20:08 Acuity: DELL 3 jj7 Triage Assessment: 20:12 General: Appears in no apparent distress. uncomfortable, Behavior is calm, cooperative, jj7 appropriate for age. Pain: Complains of pain in scalp. Derm: Wound noted scalp Wound is 4 CM LAC TO BACK OF HEAD. 20:12 Neuro: No deficits noted. jj7 Historical: - Allergies: 20:12 No Known Allergies; jj7 - PMHx: 20:12 Diabetes - NIDDM; Hypertension; jj7 - PSHx: 20:12 None; jj7 Historical Immunization: - Administered Vaccines 21:55 Meclizine PO 25 mg 21:55 Ondansetron PO 4 mg j7 21:15 Lidocaine Infiltration (1 %) 20 ml j7 20:58 Tetanus-Diphtheria Toxoid IM Adult 0.5 ml j It Business Analyst: [employer]; Exp: Sun Nov 21 2024; Lot #: [id number]; Series: 1 of 1; Patient Consent: Obtained; Date/Time: ; Source Name: Francis Goncalves; Source Relationship: Self; Address Information: [address] [place] [address], [place] [address]; ; Education: Provided; VIS Presented Date: ; VIS Publication: Tetanus/Diphtheria (Td) Vaccine VIS 07/09/2016 (historic) 20:53 Acetaminophen PO 1000 mg jj7 20:53 Ibuprofen PO 400 mg jj7 - Immunization history:: Adult Immunizations up to date. - Social history:: Smoking status: Patient denies any tobacco usage or history of. Patient/guardian denies using alcohol, street drugs. - Family history:: not pertinent. Screenin:13 [facility] ED Fall Risk Assessment (Adult) History of falling in the last 3 months, jj7 including since admission Yes- single mechanical fall (1 pt) Confusion or Disorientation No (0 pts) Intoxicated or Sedated No (0 pts) Impaired Gait No (0 pts) Mobility Assist Device Used No (0 pt) Altered Elimination No (0 pt) Score/Fall Risk Level 0 - 2 = Low Risk Oriented to surroundings, Maintained a safe environment, Educated pt \T\ family on fall prevention, incl call for assistance when getting out of bed. Abuse screen: Denies threats or abuse. Nutritional screening: No deficits noted. Tuberculosis screening: No symptoms or risk factors identified. Assessment: 20:13 Reassessment: SEE TRIAGE ASSESSMENT. j7 Vital Signs: 20:08 BP 181 / 93; Pulse 68; Resp 13; Temp 98.7; Pulse Ox 100% ; Weight 69 kg; Height 5 ft. 5 j7 in. ; 21:30 BP 122 / 109; Pulse 76; Resp 19; Pulse Ox 97% ; Pain 0/10; jj7 20:08 Body Mass Index 25.31 (69.00 kg, 165.1 cm) j7 21:30 Pain Scale: Adult j7 ED Course: 20:08 Patient arrived in ED. jj7 20:08 Stew Medel MD is Attending Physician. sp4 20:08 Mario Irene RN is Primary Nurse. jj7 20:11 Triage completed. jj7 20:12 Arm band placed on right wrist. Patient placed in an exam room, on a stretcher. jj7 20:13 Patient has correct armband on for positive identification. Bed in low position. Call jj7 light in reach. Side rails up X2. Adult w/ patient. 20:27 CT Head C Spine In Process Unspecified. EDMS 21:15 Assist provider with laceration repair on back of head that was between 2.6 to 7.5 cm jj7 using sutures. Set up tray. Performed by Stew Medel MD Dressed with Patient tolerated well. Patient did not have IV access during this emergency room visit. 21:55 Provided Education on: WOUND CARE. jj7 Administered Medications: 20:53 Drug: Acetaminophen PO 1000 mg PO once Route: PO; jj7 21:55 Follow up: Response: Marked relief of symptoms jj7 20:53 Drug: Ibuprofen PO 400 mg PO once Route: PO; jj7 21:55 Follow up: Response: Marked relief of symptoms jj7 20:58 Drug: Tetanus-Diphtheria Toxoid IM Adult 0.5 ml IM once; Provide Vaccine Information jj7 Statement (VIS). {It Business Analyst: [employer]; Exp: Sun Nov 21 2024; Lot #: [id number]; Series: 1 of 1; Patient Consent: Obtained; Date/Time: ; Source Name: Francis Goncalves; Source Relationship: Self; Address Information: [address] [place] [address]; ; Education: Provided; VIS Presented Date: ; VIS Publication: Tetanus/Diphtheria (Td) Vaccine VIS 07/09/2016 (historic)} Route: IM; Site: right deltoid; 21:55 Follow up: Response: (VIS) Vaccine information sheet provided today. Questions and/or jj7 concerns addressed. VIS edition date: Nov 03, 2020.; No adverse reaction 21:15 Drug: Lidocaine Infiltration (1 %) 20 ml 20 ml Infiltration once; to bedside {Note: jj7 ADMIN BY DR HUGHES.} Volume: 20 ml; Route: Infiltration; 21:55 Drug: Meclizine PO 25 mg PO once Route: PO; jj7 22:00 Follow up: Response: No adverse reaction jj7 21:55 Drug: Ondansetron PO 4 mg PO once Route: PO; jj7 22:00 Follow up: Response: No adverse reaction jj7 Medication: 20:13 VIS not applicable for this client. jj7 Outcome: 21:41 Discharge ordered by . sp4 21:55 Discharged to home via wheelchair, with family, jj7 21:55 Condition: improved 21:55 Discharge instructions given to patient, family, Instructed on discharge instructions, follow up and referral plans. medication usage, wound care, Demonstrated understanding of instructions, follow-up care, medications, wound care, Prescriptions given X 1, 22:06 Patient left the ED. jj7 Signatures: Dispatcher [employer] Mario Madison RN RN jj7 Stew Medel MD MD sp4
[2023-02-24] MEDS ORDERED: MECLIZINE HCL 12.5 MG TAB ONE (22:04)
[2023-02-24] MEDS ORDERED: ONDANSETRON 4 MG (ODT) TAB ONE (22:04)
[2023-02-24 22:39] VITALS: TEMP 98.7
[2023-02-24 22:41] VITALS: BP 122/109; O2SAT 97
== END 2023-02-24 22:06 | disposition home or self-care (01) ==
LOC: ER 20:04
PROC: 0JQ03ZZ Repair Scalp Subcutaneous Tissue and Fascia, Percutaneous Approach (ICD-10-PCS; principal; 2023-02-24)
DX: S01.01XA Laceration without foreign body of scalp, initial encounter (principal); S06.0X0A Concussion without loss of consciousness, initial encounter; W19.XXXA Unspecified fall, initial encounter; E11.9 Type 2 diabetes mellitus without complications; I10 Essential (primary) hypertension; R91.1 Solitary pulmonary nodule
CPT/HCPCS: 70450; 72125; 90471; 99284; 12002; J8597; Q0162; J2001

== ENCOUNTER → 2023-03-22 | Emergency (ER) | payer OTHER ==
--- OUTSIDE RECORDS SUMMARY | 2023-03-22 14:19 | XMS REPORT | Continuity of Care Document ---
Author Name Unknown Address [address] [place] [address] [facility] [address] [place] [address] Care Team Providers Care Lyric Writer Name Role Phone Alvino Mahan Attending Clinician Unavailable Payers Payer Name Policy Type Policy Number Effective Date Expirati on Date Source [facility] 6 [id number] 2021 00:00:00 [facility] MEDICARE NOV[place]AS MB [id number] 1998 00:00:00 [facility] MEDICARE NOV[place]AS [id number] 1998 00:00:00 [facility] Problems Condition Name Condition Details Condition Category Status Onset Date Resolution Date Last Treatment Date Treating Clinician Comments Source [id number] Primary osteoarthr itis of right shoulder Problem [facility] [id number] Primary osteoarthr itis of left shoulder Problem [facility] [id number] Type 2 diabetes mellitus with other diabetic kidney complicati on Problem [facility] [id number] Primary osteoarthr itis of left knee Problem [facility] Arthritis of both knees Arthritis of both knees Problem [facility] [id number] Primary osteoarthr itis of right knee Problem [facility] [id number] Renal insufficie ncy Problem [facility] [id number] Benign prostatic hyperplasi a, unspecifie d whether lower urinary tract symptoms present Problem [facility] Peripheral venous insufficie ncy Venous insufficie ncy Problem [facility] Type II diabetes mellitus well controlled Diabetes type 2, controlled Problem [facility] Obesity Other obesity due to excess calories Problem [facility] Essential hypertensi on Benign essential HTN Problem [facility] [id number] Body mass index (BMI) 32.0-32.9, adult Problem [facility] [id number] +5th digit eff 12/30/19*Ch ronic kidney disease, stage 3 (moderate) Problem [facility] [id number] Chronic sinusitis, unspecifie d location Problem [facility] Osteoarthr itis of multiple joints Osteoarthr itis of multiple joints Problem [facility] [id number] Stage 3a chronic kidney disease Problem [facility] Calculus of kidney and ureter Calculus of kidney and ureter Problem [facility] [id number] Type 2 diabetes mellitus with diabetic chronic kidney disease Problem [facility] [id number] Chronic gout of right foot, unspecifie d cause Problem [facility] [id number] Other chronic pain Problem [facility] Social History Social Habit Start Date Stop Date Quantity Comments Source History of Tobacco Use [facility] Sex Assigned At [facility] Smoking Status Start Date Stop Date Source Never Smoker [facility] Medications Ordered Medication Name Filled Medication Name Start Date Stop Date Current Medication? Ordering Clinician Indication Dosage Frequency Signature (SIG) Comments Components Source Bupivicaine Lee Bupivicaine Lee 09-03 00:00: 00 [facility] Kenalog (Triamcinol one) Kenalog (Triamcinol one) 09-03 00:00: 00 No [facility]mL [facility] Bupivicaine Lee Bupivicaine Lee 09-03 00:00: 00 No 5mL [facility] Kenalog (Triamcinol one) Kenalog (Triamcinol one) 09-03 00:00: 00 No 1mL [facility] Bupivicaine Lee Bupivicaine Lee 09-03 00:00: 00 No 5mL [facility] Kenalog (Triamcinol one) Kenalog (Triamcinol one) 09-03 00:00: 00 No 1mL Common [facility] Bupivicaine Lee Bupivicaine Lee 09-03 00:00: 00 No 5mL Common [facility] Kenalog (Triamcinol one) Kenalog (Triamcinol one) 09-03 00:00: 00 No [facility] Bupivicaine Lee Bupivicaine Lee 09-03 00:00: 00 No 5mL [facility] Kenalog (Triamcinol one) Kenalog (Triamcinol one) 09-03 00:00: 00 No [facility]mL [facility] Bupivicaine Lee Bupivicaine Lee 0 09-03 00:00: 00 No 5mL [facility] Kenalog (Triamcinol one) Kenalog (Triamcinol one) 09-03 00:00: 00 No [facility]mL [facility] Bupivicaine Lee Bupivicaine Lee 0 09-03 00:00: 00 No 5mL [facility] Kenalog (Triamcinol one) Kenalog (Triamcinol one) 0 - 00:00: 00 No 1mL [facility] Bupivicaine Lee Bupivicaine Lee 0 09-03 00:00: 00 No 5[facility] Kenalog (Triamcinol one) Kenalog (Triamcinol one) 0 - 00:00: 00 No [facility]mL [facility] Bupivicaine Lee Bupivicaine Lee 2022-0 09-03 00:00: 00 No 5mL [facility] Kenalog (Triamcinol one) Kenalog (Triamcinol one) 0 09-03 00:00: 00 No 1mL [facility] Bupivicaine Lee Bupivicaine Lee 0 08-20 00:00: 00 No 5mL [facility] Kenalog (Triamcinol one) Kenalog (Triamcinol one) 0 08-20 00:00: 00 No [facility]mL [facility] Bupivicaine Lee Bupivicaine Lee 0 08-20 00:00: 00 No 5mL [facility] Kenalog (Triamcinol one) Kenalog (Triamcinol one) 0 08-20 00:00: 00 No [facility]mL [facility] Bupivicaine Lee Bupivicaine Lee 0 08-20 00:00: 00 No 5mL [facility] Kenalog (Triamcinol one) Kenalog (Triamcinol one) 0 08-20 00:00: 00 No [facility]mL [facility] Bupivicaine Lee Bupivicaine Lee 2022-0 08-20 00:00: 00 No 5mL [facility] Kenalog (Triamcinol one) Kenalog (Triamcinol one) 0 08-20 00:00: 00 No 1mL [facility] Bupivicaine Lee Bupivicaine Lee 0 08-20 00:00: 00 No 5mL [facility] Kenalog (Triamcinol one) Kenalog (Triamcinol one) 0 08-20 00:00: 00 No 1mL [facility] Bupivicaine Lee Bupivicaine Lee 0 08-20 00:00: 00 No 5mL [facility] Kenalog (Triamcinol one) Kenalog (Triamcinol one) 0 08-20 00:00: 00 No 1mL [facility] Bupivicaine Lee Bupivicaine Lee 0 08-20 00:00: 00 No 5mL [facility] Kenalog (Triamcinol one) Kenalog (Triamcinol one) 0 08-20 00:00: 00 No 1mL [facility] Bupivicaine Lee Bupivicaine Lee 0 08-20 00:00: 00 No 5mL [facility] Kenalog (Triamcinol one) Kenalog (Triamcinol one) 0 08-20 00:00: 00 No 1mL [facility] Bupivicaine Lee Bupivicaine Lee 0 08-20 00:00: 00 No 5mL [facility] Kenalog (Triamcinol one) Kenalog (Triamcinol one) 0 08-20 00:00: 00 No 1mL [facility] Kenalog (Triamcinol one) Kenalog (Triamcinol one) 0 - 00:00: 00 No 1mL [facility] Bupivicaine Lee Bupivicaine Lee 0 05-23 00:00: 00 No 4mL [facility] Kenalog (Triamcinol one) Kenalog (Triamcinol one) 0 - 00:00: 00 No 1mL [facility] Bupivicaine Lee Bupivicaine Lee 0 05-23 00:00: 00 No 4mL [facility] Kenalog (Triamcinol one) Kenalog (Triamcinol one) 0 2- 00:00: 00 No 1mL [facility] Bupivicaine Lee Bupivicaine Lee 0 05-23 00:00: 00 No 4mL [facility] Kenalog (Triamcinol one) Kenalog (Triamcinol one) 0 - 00:00: 00 No 1mL [facility] Bupivicaine Lee Bupivicaine Lee 0 05-23 00:00: 00 No 4mL [facility] Kenalog (Triamcinol one) Kenalog (Triamcinol one) 0 05-23 00:00: 00 No 1mL [facility] Bupivicaine Lee Bupivicaine Lee 0 05-23 00:00: 00 No 4mL [facility] Kenalog (Triamcinol one) Kenalog (Triamcinol one) 0 05-23 00:00: 00 No 1mL [facility] Bupivicaine Lee Bupivicaine Lee 0 05-23 00:00: 00 No 4mL [facility] Kenalog (Triamcinol one) Kenalog (Triamcinol one) 0 2- 00:00: 00 No 1mL [facility] Bupivicaine Lee Bupivicaine Lee 0 05-23 00:00: 00 No 4mL [facility] Kenalog (Triamcinol one) Kenalog (Triamcinol one) 0 2- 00:00: 00 No 1mL [facility] Bupivicaine Lee Bupivicaine Lee 2022-0 2- 00:00: 00 No 4mL [facility] Kenalog (Triamcinol one) Kenalog (Triamcinol one) 0 2 00:00: 00 No 1mL [facility] Bupivicaine Lee Bupivicaine Lee 0 05-23 00:00: 00 No 4mL [facility] Kenalog (Triamcinol one) Kenalog (Triamcinol one) 0 8- 00:00: 00 No 40mg [facility] Bupivicaine Lee Bupivicaine Lee 0 11-06 00:00: 00 No 2.5mg [facility] Kenalog (Triamcinol one) Kenalog (Triamcinol one) 0 11-06 00:00: 00 No 40mg [facility] Bupivicaine Lee Bupivicaine Lee 0 11-06 00:00: 00 No 2.5mg [facility] Kenalog (Triamcinol one) Kenalog (Triamcinol one) 0 8- 00:00: 00 No 40mg [facility] Bupivicaine Lee Bupivicaine Lee 0 11-06 00:00: 00 No 2.5mg [facility] Kenalog (Triamcinol one) Kenalog (Triamcinol one) 0 11-06 00:00: 00 No 40mg [facility] Bupivicaine Lee Bupivicaine Lee 0 11-06 00:00: 00 No 2.5mg [facility] Kenalog (Triamcinol one) Kenalog (Triamcinol one) 0 8 00:00: 00 No 40mg [facility] Bupivicaine Lee Bupivicaine Lee 0 11-06 00:00: 00 No 2.5mg [facility] Kenalog (Triamcinol one) Kenalog (Triamcinol one) 0 8- 00:00: 00 No 40mg [facility] Bupivicaine Lee Bupivicaine Lee 0 11-06 00:00: 00 No 2.5mg [facility] Kenalog (Triamcinol one) Kenalog (Triamcinol one) 0 11-06 00:00: 00 No 40mg [facility] Bupivicaine Lee Bupivicaine Lee 0 11-06 00:00: 00 No 2.5mg [facility] Kenalog (Triamcinol one) Kenalog (Triamcinol one) 0 11-06 00:00: 00 No 40mg [facility] Bupivicaine Lee Bupivicaine Lee 0 11-06 00:00: 00 No 2.5mg [facility] Kenalog (Triamcinol one) Kenalog (Triamcinol one) 0 11-06 00:00: 00 No 40mg [facility] Bupivicaine Lee Bupivicaine Lee 0 11-06 00:00: 00 No 2.5mg [facility] Kenalog (Triamcinol one) Kenalog (Triamcinol one) 0 11-06 00:00: 00 No 40mg [facility] Bupivicaine Lee Bupivicaine Lee 0 11-06 00:00: 00 No 2.5mg [facility] Kenalog (Triamcinol one) Kenalog (Triamcinol one) 0 11-06 00:00: 00 No 40mg [facility] Bupivicaine Lee Bupivicaine Lee 0 11-06 00:00: 00 No 2.5mg [facility] Kenalog (Triamcinol one) Kenalog (Triamcinol one) 0 11-06 00:00: 00 No 40mg [facility] Bupivicaine Lee Bupivicaine Lee 2021-0 11-06 00:00: 00 No 2.5mg [facility] Bupivicaine Lee Bupivicaine Lee 10-22 00:00: 00 No 2.5mg [facility] Kenalog (Triamcinol one) Kenalog (Triamcinol one) 10-22 00:00: 00 No 40mg [facility] Bupivicaine Lee Bupivicaine Lee 10-22 00:00: 00 No 2.5mg [facility] Kenalog (Triamcinol one) Kenalog (Triamcinol one) 10-22 00:00: 00 No 40mg [facility] Bupivicaine Lee Bupivicaine Lee 10-22 00:00: 00 No 2.5mg [facility] Kenalog (Triamcinol one) Kenalog (Triamcinol one) 10-22 00:00: 00 No 40mg [facility] Bupivicaine Lee Bupivicaine Lee 10-22 00:00: 00 No 2.5mg [facility] Kenalog (Triamcinol one) Kenalog (Triamcinol one) 10-22 00:00: 00 No 40mg [facility] Bupivicaine Lee Bupivicaine Lee 10-22 00:00: 00 No 2.5mg [facility] Kenalog (Triamcinol one) Kenalog (Triamcinol one) 10-22 00:00: 00 No 40mg [facility] Bupivicaine Lee Bupivicaine Lee 10-22 00:00: 00 No 2.5mg [facility] Kenalog (Triamcinol one) Kenalog (Triamcinol one) 10-22 00:00: 00 No 40mg [facility] Bupivicaine Lee Bupivicaine Lee 10-22 00:00: 00 No 2.5mg [facility] Kenalog (Triamcinol one) Kenalog (Triamcinol one) 10-22 00:00: 00 No 40mg [facility] Bupivicaine Lee Bupivicaine Lee 10-22 00:00: 00 No 2.5mg [facility] Kenalog (Triamcinol one) Kenalog (Triamcinol one) 10-22 00:00: 00 No 40mg [facility] Bupivicaine Lee Bupivicaine Lee 10-22 00:00: 00 No 2.5mg [facility] Kenalog (Triamcinol one) Kenalog (Triamcinol one) 10-22 00:00: 00 No 40mg [facility] Bupivicaine Lee Bupivicaine Lee 10-22 00:00: 00 No 2.5mg [facility] Kenalog (Triamcinol one) Kenalog (Triamcinol one) 10-22 00:00: 00 No 40mg [facility] Bupivicaine Lee Bupivicaine Lee 10-22 00:00: 00 No 2.5mg [facility] Kenalog (Triamcinol one) Kenalog (Triamcinol one) 10-22 00:00: 00 No 40mg [facility] Bupivicaine Lee Bupivicaine Lee 10-22 00:00: 00 No 2.5mg [facility] Kenalog (Triamcinol one) Kenalog (Triamcinol one) 10-22 00:00: 00 No 40mg [facility] Bupivicaine Lee Bupivicaine Lee 10-22 00:00: 00 No 2.5mg [facility] Kenalog (Triamcinol one) Kenalog (Triamcinol one) 10-22 00:00: 00 No 40mg [facility] Col[facility]icine 2018-03 00:00: 00 Yes Alvino Mahan 2 caps x 1 then 1 caps po 1 hour later x 1 [facility] Kenalog (Triamcinol one) Kenalog (Triamcinol one) 2018-03 00:00: 00 No 40mg [facility] Kenalog (Triamcinol one) Kenalog (Triamcinol one) 2018-03 00:00: 00 No 40mg [facility] Kenalog (Triamcinol one) Kenalog (Triamcinol one) 2018-03 00:00: 00 No 40mg [facility] Kenalog (Triamcinol one) Kenalog (Triamcinol one) 2018-03 00:00: 00 No 40mg [facility] Kenalog (Triamcinol one) Kenalog (Triamcinol one) 2018-03 00:00: 00 No 40mg [facility] Kenalog (Triamcinol one) Kenalog (Triamcinol one) 2018-03 00:00: 00 No 40mg [facility] Kenalog (Triamcinol one) Kenalog (Triamcinol one) 2018-03 00:00: 00 No 40mg [facility] Kenalog (Triamcinol one) Kenalog (Triamcinol one) 2018-03 00:00: 00 No 40mg [facility] Kenalog (Triamcinol one) Kenalog (Triamcinol one) 2018-03 00:00: 00 No 40mg [facility] Kenalog (Triamcinol one) Kenalog (Triamcinol one) 2018-03 00:00: 00 No 40mg [facility] Kenalog (Triamcinol one) Kenalog (Triamcinol one) 2018-03 00:00: 00 No 40mg [facility] Kenalog (Triamcinol one) Kenalog (Triamcinol one) 2018-03 00:00: 00 No 40mg [facility] Kenalog (Triamcinol one) Kenalog (Triamcinol one) 2018-03 00:00: 00 No 40mg [facility] Kenalog (Triamcinol one) Kenalog (Triamcinol one) 2018-03 00:00: 00 No 40mg [facility] Kenalog (Triamcinol one) Kenalog (Triamcinol one) 2018-03 00:00: 00 No 40mg [facility] Kenalog (Triamcinol one) Kenalog (Triamcinol one) 2018-03 00:00: 00 No 40mg [facility] Kenalog (Triamcinol one) Kenalog (Triamcinol one) 2018-03 00:00: 00 No 40mg [facility] Metformin HCl Metformin HCl Yes Alvino Mahan 1 tablet with meals [facility] Tamsulosin HCl Tamsulosin HCl Yes Alvino Mahan TAKE 1 ORAL CAPSULE 2 TIMES A DAY [facility] Zestoretic Zestoretic Yes Alvino Mahan 1 tablet [facility] Aspir-81 Aspir-81 Yes Alvino Mahan 1 tablet [facility] Allopurinol Allopurinol Yes Alvino Mahan 1 tablet [facility] Aspirin 81 81 MG Aspirin 81 81 MG No 1{table t} QD Aspirin 81 81 MG Allopurinol 300 MG Allopurinol 300 MG No 1{table t} QD Allopurino l 300 MG Flomax 0.4 MG Flomax 0.4 MG No 1{capsu le} QD Flomax 0.4 MG Flomax 0.4 MG Flomax 0.4 MG No 1{capsu le} QD Flomax 0.4 MG Fluticasone Propionate 50 MCG/ACT Fluticasone Propionate 50 MCG/ACT No 1{spray _in_eac h_nostr il} QD Fluticason e Propionate 50 MCG/ACT Zestoretic 20-12.5 MG Zestoretic 20-12.5 MG No 1{table t} QD Zestoretic 20-12.5 MG Zestoretic 20-12.5 MG Zestoretic 20-12.5 MG No 1{table t} QD Zestoretic 20-12.5 MG Aspirin 81 81 MG Aspirin 81 81 MG No 1{table t} QD Aspirin 81 81 MG Lisinopril- hydroCHLORO thiazide 20-12.5 MG Lisinopril- hydroCHLORO thiazide 20-12.5 MG No Lisinopril -hydroCHLO ROthiazide 20-12.5 MG Flomax 0.4 MG Flomax 0.4 MG No 1{capsu le} QD Flomax 0.4 MG Tamsulosin HCl 0.4 MG Tamsulosin HCl 0.4 MG No Tamsulosin HCl 0.4 MG Fluticasone Propionate 50 MCG/ACT Fluticasone Propionate 50 MCG/ACT No 1{spray _in_eac h_nostr il} QD Fluticason e Propionate 50 MCG/ACT Allopurinol 300 MG Allopurinol 300 MG No Allopurino l 300 MG Zestoretic 20-12.5 MG Zestoretic 20-12.5 MG No 1{table t} QD Zestoretic 20-12.5 MG Flomax 0.4 MG Flomax 0.4 MG No 1{capsu le} QD Flomax 0.4 MG Zestoretic 20-12.5 MG Zestoretic 20-12.5 MG No 1{table t} QD Zestoretic 20-12.5 MG Lisinopril- hydroCHLORO thiazide 20-12.5 MG Lisinopril- hydroCHLORO thiazide 20-12.5 MG No 1{table t} QD Lisinopril -hydroCHLO ROthiazide 20-12.5 MG Allopurinol 300 MG Allopurinol 300 MG No 1{table t} QD Allopurino l 300 MG Flomax 0.4 MG Flomax 0.4 MG No 1{capsu le} QD Flomax 0.4 MG Zestoretic 20-12.5 MG Zestoretic 20-12.5 MG No 1{table t} QD Zestoretic 20-12.5 MG Lisinopril- hydroCHLORO thiazide 20-12.5 MG Lisinopril- hydroCHLORO thiazide 20-12.5 MG No 1{table t} QD Lisinopril -hydroCHLO ROthiazide 20-12.5 MG Allopurinol 300 MG Allopurinol 300 MG No 1{table t} QD Allopurino l 300 MG Lisinopril- hydroCHLORO thiazide 20-12.5 MG Lisinopril- hydroCHLORO thiazide 20-12.5 MG No 1{table t} QD Lisinopril -hydroCHLO ROthiazide 20-12.5 MG Zestoretic 20-12.5 MG Zestoretic 20-12.5 MG No 1{table t} QD Zestoretic 20-12.5 MG Flomax 0.4 MG Flomax 0.4 MG No 1{capsu le} QD Flomax 0.4 MG Aspirin Aspirin No Aspirin Allopurinol 300 MG Allopurinol 300 MG No 1{table t} QD Allopurino l 300 MG Allopurinol 300 MG Allopurinol 300 MG No 1{table t} QD Allopurino l 300 MG Aspirin Aspirin No Aspirin Flomax 0.4 MG Flomax 0.4 MG No 1{capsu le} QD Flomax 0.4 MG Zestoretic 20-12.5 MG Zestoretic 20-12.5 MG No 1{table t} QD Zestoretic 20-12.5 MG Lisinopril- hydroCHLORO thiazide 20-12.5 MG Lisinopril- hydroCHLORO thiazide 20-12.5 MG No 1{table t} QD Lisinopril -hydroCHLO ROthiazide 20-12.5 MG Zestoretic 20-12.5 MG Zestoretic 20-12.5 MG No 1{table t} QD Zestoretic 20-12.5 MG Allopurinol 300 MG Allopurinol 300 MG No Allopurino l 300 MG Aspirin Aspirin No Aspirin Tamsulosin HCl 0.4 MG Tamsulosin HCl 0.4 MG No Tamsulosin HCl 0.4 MG Flomax 0.4 MG Flomax 0.4 MG No 1{capsu le} QD Flomax 0.4 MG Lisinopril- hydroCHLORO thiazide 20-12.5 MG Lisinopril- hydroCHLORO thiazide 20-12.5 MG No Lisinopril -hydroCHLO ROthiazide 20-12.5 MG Zestoretic 20-12.5 MG Zestoretic 20-12.5 MG No 1{table t} QD Zestoretic 20-12.5 MG Allopurinol 300 MG Allopurinol 300 MG No Allopurino l 300 MG metFORMIN HCl 500 MG metFORMIN HCl 500 MG No 1{table t_with_ a_meal} QD metFORMIN HCl 500 MG Tamsulosin HCl 0.4 MG Tamsulosin HCl 0.4 MG No Tamsulosin HCl 0.4 MG Allopurinol 300 MG Allopurinol 300 MG No 1{table t} QD Allopurino l 300 MG Aspirin Aspirin No Aspirin Flomax 0.4 MG Flomax 0.4 MG No 1{capsu le} QD Flomax 0.4 MG Lisinopril- hydroCHLORO thiazide 20-12.5 MG Lisinopril- hydroCHLORO thiazide 20-12.5 MG No Lisinopril -hydroCHLO ROthiazide 20-12.5 MG Tamsulosin HCl 0.4 MG Tamsulosin HCl 0.4 MG No Tamsulosin HCl 0.4 MG Allopurinol 300 MG Allopurinol 300 MG No Allopurino l 300 MG Aspirin Aspirin No Aspirin metFORMIN HCl 500 MG metFORMIN HCl 500 MG No metFORMIN HCl 500 MG Lisinopril- hydroCHLORO thiazide 20-12.5 MG Lisinopril- hydroCHLORO thiazide 20-12.5 MG No Lisinopril -hydroCHLO ROthiazide 20-12.5 MG Allopurinol 300 MG Allopurinol 300 MG No 1{table t} QD Allopurino l 300 MG Tamsulosin HCl 0.4 MG Tamsulosin HCl 0.4 MG No Tamsulosin HCl 0.4 MG Allopurinol 300 MG Allopurinol 300 MG No Allopurino l 300 MG Aspirin Aspirin No Aspirin metFORMIN HCl 500 MG metFORMIN HCl 500 MG No metFORMIN HCl 500 MG Lisinopril- hydroCHLORO thiazide 20-12.5 MG Lisinopril- hydroCHLORO thiazide 20-12.5 MG No Lisinopril -hydroCHLO ROthiazide 20-12.5 MG Allopurinol 300 MG Allopurinol 300 MG No 1{table t} QD Allopurino l 300 MG Tamsulosin HCl 0.4 MG Tamsulosin HCl 0.4 MG No Tamsulosin HCl 0.4 MG Allopurinol 300 MG Allopurinol 300 MG No Allopurino l 300 MG Aspirin Aspirin No Aspirin metFORMIN HCl 500 MG metFORMIN HCl 500 MG No metFORMIN HCl 500 MG Lisinopril- hydroCHLORO thiazide 20-12.5 MG Lisinopril- hydroCHLORO thiazide 20-12.5 MG No Lisinopril -hydroCHLO ROthiazide 20-12.5 MG Allopurinol 300 MG Allopurinol 300 MG No 1{table t} QD Allopurino l 300 MG Tamsulosin HCl 0.4 MG Tamsulosin HCl 0.4 MG No Tamsulosin HCl 0.4 MG Allopurinol 300 MG Allopurinol 300 MG No Allopurino l 300 MG Aspirin Aspirin No Aspirin metFORMIN HCl 500 MG metFORMIN HCl 500 MG No metFORMIN HCl 500 MG Lisinopril- hydroCHLORO thiazide 20-12.5 MG Lisinopril- hydroCHLORO thiazide 20-12.5 MG No Lisinopril -hydroCHLO ROthiazide 20-12.5 MG Allopurinol 300 MG Allopurinol 300 MG No 1{table t} QD Allopurino l 300 MG Tamsulosin HCl 0.4 MG Tamsulosin HCl 0.4 MG No Tamsulosin HCl 0.4 MG Allopurinol 300 MG Allopurinol 300 MG No Allopurino l 300 MG Aspirin Aspirin No Aspirin metFORMIN HCl 500 MG metFORMIN HCl 500 MG No metFORMIN HCl 500 MG Lisinopril- hydroCHLORO thiazide 20-12.5 MG Lisinopril- hydroCHLORO thiazide 20-12.5 MG No Lisinopril -hydroCHLO ROthiazide 20-12.5 MG Allopurinol 300 MG Allopurinol 300 MG No 1{table t} QD Allopurino l 300 MG Tamsulosin HCl 0.4 MG Tamsulosin HCl 0.4 MG No Tamsulosin HCl 0.4 MG Allopurinol 300 MG Allopurinol 300 MG No Allopurino l 300 MG Aspirin Aspirin No Aspirin metFORMIN HCl 500 MG metFORMIN HCl 500 MG No metFORMIN HCl 500 MG Lisinopril- hydroCHLORO thiazide 20-12.5 MG Lisinopril- hydroCHLORO thiazide 20-12.5 MG No Lisinopril -hydroCHLO ROthiazide 20-12.5 MG Allopurinol 300 MG Allopurinol 300 MG No 1{table t} QD Allopurino l 300 MG Tamsulosin HCl 0.4 MG Tamsulosin HCl 0.4 MG No Tamsulosin HCl 0.4 MG Allopurinol 300 MG Allopurinol 300 MG No Allopurino l 300 MG Aspirin Aspirin No Aspirin metFORMIN HCl 500 MG metFORMIN HCl 500 MG No metFORMIN HCl 500 MG Lisinopril- hydroCHLORO thiazide 20-12.5 MG Lisinopril- hydroCHLORO thiazide 20-12.5 MG No Lisinopril -hydroCHLO ROthiazide 20-12.5 MG Allopurinol 300 MG Allopurinol 300 MG No 1{table t} QD Allopurino l 300 MG metFORMIN HCl 500 MG metFORMIN HCl 500 MG No metFORMIN HCl 500 MG Tamsulosin HCl 0.4 MG Tamsulosin HCl 0.4 MG No Tamsulosin HCl 0.4 MG Allopurinol 300 MG Allopurinol 300 MG No Allopurino l 300 MG Allopurinol 300 MG Allopurinol 300 MG No 1{table t} QD Allopurino l 300 MG Lisinopril- hydroCHLORO thiazide 20-12.5 MG Lisinopril- hydroCHLORO thiazide 20-12.5 MG No Lisinopril -hydroCHLO ROthiazide 20-12.5 MG Aspirin Aspirin No Aspirin metFORMIN HCl 500 MG metFORMIN HCl 500 MG No metFORMIN HCl 500 MG Tamsulosin HCl 0.4 MG Tamsulosin HCl 0.4 MG No Tamsulosin HCl 0.4 MG Allopurinol 300 MG Allopurinol 300 MG No Allopurino l 300 MG Allopurinol 300 MG Allopurinol 300 MG No 1{table t} QD Allopurino l 300 MG Lisinopril- hydroCHLORO thiazide 20-12.5 MG Lisinopril- hydroCHLORO thiazide 20-12.5 MG No Lisinopril -hydroCHLO ROthiazide 20-12.5 MG Aspirin Aspirin No Aspirin Allopurinol 300 MG Allopurinol 300 MG No Allopurino l 300 MG Flomax 0.4 MG Flomax 0.4 MG No 1{capsu le} QD Flomax 0.4 MG Allopurinol 300 MG Allopurinol 300 MG No 1{table t} QD Allopurino l 300 MG Zestoretic 20-12.5 MG Zestoretic 20-12.5 MG No 1{table t} QD Zestoretic 20-12.5 MG Allopurinol 300 MG Allopurinol 300 MG No 1{table t} QD Allopurino l 300 MG Flomax 0.4 MG Flomax 0.4 MG No 1{capsu le} QD Flomax 0.4 MG Allopurinol 300 MG Allopurinol 300 MG No Allopurino l 300 MG Zestoretic 20-12.5 MG Zestoretic 20-12.5 MG No 1{table t} QD Zestoretic 20-12.5 MG Flomax Flomax 01-21 00:00 :00 No Alvino Mahan 1 capsule [facility] Immunizations Ordered Immunization Name Filled Immunization Name Date Status Comments Source Moderna COVID-19 Vaccine (Low Dose Booster) Moderna COVID-19 Vaccine (Low Dose Booster) 2021-02-28 11:58:00 Completed [facility] Moderna COVID-19 Vaccine (Low Dose Booster) Moderna COVID-19 Vaccine (Low Dose Booster) 2021-02-28 11:58:00 Completed [facility] Moderna COVID-19 Vaccine (Low Dose Booster) Moderna COVID-19 Vaccine (Low Dose Booster) 2021-02-28 11:58:00 Completed [facility] Moderna COVID-19 Vaccine (Low Dose Booster) Moderna COVID-19 Vaccine (Low Dose Booster) 2021-02-28 11:58:00 Completed [facility] Moderna COVID-19 Vaccine (Low Dose Booster) Moderna COVID-19 Vaccine (Low Dose Booster) 2021-02-28 11:58:00 Completed [facility] Moderna COVID-19 Vaccine (Low Dose Booster) Moderna COVID-19 Vaccine (Low Dose Booster) 2021-02-28 11:58:00 Completed [facility] Moderna COVID-19 Vaccine (Low Dose Booster) Moderna COVID-19 Vaccine (Low Dose Booster) 2021-02-28 11:58:00 Completed [facility] Moderna COVID-19 Vaccine (Low Dose Booster) Moderna COVID-19 Vaccine (Low Dose Booster) 2021-02-28 11:58:00 Completed [facility] Moderna COVID-19 Vaccine (Low Dose Booster) Moderna COVID-19 Vaccine (Low Dose Booster) 2021-02-28 11:58:00 Completed [facility] Fluzone Fluzone 2021-02-20 09:33:00 Completed [facility] Fluzone Fluzone 2021-02-20 09:33:00 Completed [facility] Fluzone Fluzone 2021-02-20 09:33:00 Completed [facility] Fluzone Fluzone 2021-02-20 09:33:00 Completed [facility] Fluzone Fluzone 2021-02-20 09:33:00 Completed [facility] Fluzone Fluzone 2021-02-20 09:33:00 Completed [facility] Fluzone Fluzone 2021-02-20 09:33:00 Completed [facility] Fluzone Fluzone 2021-02-20 09:33:00 Completed [facility] Fluzone Fluzone 2021-02-20 09:33:00 Completed [facility] Fluzone Fluzone 2021-02-20 09:33:00 Completed [facility] Moderna COVID-19 Vaccine Moderna COVID-19 Vaccine 2020-07-18 12:00:00 Completed [facility] Moderna COVID-19 Vaccine Moderna COVID-19 Vaccine 2020-07-18 12:00:00 Completed [facility] Moderna COVID-19 Vaccine Moderna COVID-19 Vaccine 2020-07-18 12:00:00 Completed [facility] Moderna COVID-19 Vaccine Moderna COVID-19 Vaccine 2020-07-18 12:00:00 Completed [facility] Moderna COVID-19 Vaccine Moderna COVID-19 Vaccine 2020-07-18 12:00:00 Completed [facility] Moderna COVID-19 Vaccine Moderna COVID-19 Vaccine 2020-07-18 12:00:00 Completed [facility] Moderna COVID-19 Vaccine Moderna COVID-19 Vaccine 2020-07-18 12:00:00 Completed [facility] Moderna COVID-19 Vaccine Moderna COVID-19 Vaccine 2020-07-18 12:00:00 Completed [facility] Moderna COVID-19 Vaccine Moderna COVID-19 Vaccine 2020-07-18 12:00:00 Completed [facility] Moderna COVID-19 Vaccine Moderna COVID-19 Vaccine 2020-05-31 11:59:00 Completed [facility] Moderna COVID-19 Vaccine Moderna COVID-19 Vaccine 2020-05-31 11:59:00 Completed [facility] Moderna COVID-19 Vaccine Moderna COVID-19 Vaccine 2020-05-31 11:59:00 Completed [facility] Moderna COVID-19 Vaccine Moderna COVID-19 Vaccine 2020-05-31 11:59:00 Completed [facility] Moderna COVID-19 Vaccine Moderna COVID-19 Vaccine 2020-05-31 11:59:00 Completed [facility] Moderna COVID-19 Vaccine Moderna COVID-19 Vaccine 2020-05-31 11:59:00 Completed [facility] Moderna COVID-19 Vaccine Moderna COVID-19 Vaccine 2020-05-31 11:59:00 Completed [facility] Moderna COVID-19 Vaccine Moderna COVID-19 Vaccine 2020-05-31 11:59:00 Completed [facility] Moderna COVID-19 Vaccine Moderna COVID-19 Vaccine 2020-05-31 11:59:00 Completed [facility] FluAD FluAD 2020-01-27 14:12:00 Completed [facility] FluAD FluAD 2020-01-27 14:12:00 Completed [facility] FluAD FluAD 2020-01-27 14:12:00 Completed [facility] FluAD FluAD 2020-01-27 14:12:00 Completed [facility] FluAD FluAD 2020-01-27 14:12:00 Completed [facility] FluAD FluAD 2020-01-27 14:12:00 Completed [facility] FluAD FluAD 2020-01-27 14:12:00 Completed [facility] FluAD FluAD 2020-01-27 14:12:00 Completed [facility] FluAD FluAD 2020-01-27 14:12:00 Completed [facility] FluAD FluAD 2020-01-27 14:12:00 Completed [facility] FluAD FluAD 2018-02-23 13:27:00 Completed [facility] FluAD FluAD 2018-02-23 13:27:00 Completed [facility] FluAD FluAD 2018-02-23 13:27:00 Completed [facility] FluAD FluAD 2018-02-23 13:27:00 Completed [facility] FluAD FluAD 2018-02-23 13:27:00 Completed [facility] FluAD FluAD 2018-02-23 13:27:00 Completed [facility] FluAD FluAD 2018-02-23 13:27:00 Completed [facility] FluAD FluAD 2018-02-23 13:27:00 Completed [facility] FluAD FluAD 2018-02-23 13:27:00 Completed [facility] FluAD FluAD 2018-02-23 13:27:00 Completed [facility] Prevnar 20 (PCV20) Prevnar 20 (PCV20) Unknown [facility] Moderna COVID-19 Vaccine (Low Dose Booster) Unknown [facility] COVID[facility]19 Vaccine Moderna COVID-19 Vaccine Unknown Completed [facility] Moderna COVID-19 Vaccine Moderna COVID-19 Vaccine Unknown Completed [facility] FluAD FluAD Unknown Completed [facility] FluAD FluAD Unknown Completed [facility] Fluzone Fluzone Unknown Completed [facility] Prevnar 20 (PCV20) Prevnar 20 (PCV20) Unknown Completed [facility] Moderna COVID-19 Vaccine (Low Dose Booster) Moderna COVID-19 Vaccine (Low Dose Booster) Unknown Completed [facility] Moderna COVID-19 Vaccine Moderna COVID-19 Vaccine Unknown Completed [facility] Moderna COVID-19 Vaccine Moderna COVID-19 Vaccine Unknown Completed [facility] FluAD FluAD Unknown Completed [facility] FluAD FluAD Unknown Completed [facility] Fluzone Fluzone Unknown Completed [facility] Prevnar 20 (PCV20) Prevnar 20 (PCV20) Unknown Completed [facility] Moderna COVID-19 Vaccine (Low Dose Booster) Moderna COVID-19 Vaccine (Low Dose Booster) Unknown Completed [facility] Moderna COVID-19 Vaccine Moderna COVID-19 Vaccine Unknown Completed [facility] Moderna COVID-19 Vaccine Moderna COVID-19 Vaccine Unknown Completed [facility] FluAD FluAD Unknown Completed [facility] FluAD FluAD Unknown Completed [facility] Fluzone Fluzone Unknown Completed [facility] Prevnar 20 (PCV20) Prevnar 20 (PCV20) Unknown Completed [facility] Moderna COVID-19 Vaccine (Low Dose Booster) Moderna COVID-19 Vaccine (Low Dose Booster) Unknown Completed [facility] Moderna COVID-19 Vaccine Moderna COVID-19 Vaccine Unknown Completed [facility] Moderna COVID-19 Vaccine Moderna COVID-19 Vaccine Unknown Completed [facility] FluAD FluAD Unknown Completed [facility] FluAD FluAD Unknown Completed [facility] Fluzone Fluzone Unknown Completed [facility] Prevnar 20 (PCV20) Prevnar 20 (PCV20) Unknown Completed [facility] Moderna COVID-19 Vaccine (Low Dose Booster) Moderna COVID-19 Vaccine (Low Dose Booster) Unknown Completed [facility] Moderna COVID-19 Vaccine Moderna COVID-19 Vaccine Unknown Completed [facility] Moderna COVID-19 Vaccine Moderna COVID-19 Vaccine Unknown Completed [facility] FluAD FluAD Unknown Completed [facility] FluAD FluAD Unknown Completed [facility] Fluzone Fluzone Unknown Completed [facility] Prevnar 20 (PCV20) Prevnar 20 (PCV20) Unknown Completed [facility] Moderna COVID-19 Vaccine (Low Dose Booster) Moderna COVID-19 Vaccine (Low Dose Booster) Unknown Completed [facility] Moderna COVID-19 Vaccine Moderna COVID-19 Vaccine Unknown Completed [facility] Moderna COVID-19 Vaccine Moderna COVID-19 Vaccine Unknown Completed [facility] FluAD FluAD Unknown Completed [facility] FluAD FluAD Unknown Completed [facility] Fluzone Fluzone Unknown Completed [facility] Prevnar 20 (PCV20) Prevnar 20 (PCV20) Unknown Completed [facility] Moderna COVID-19 Vaccine (Low Dose Booster) Moderna COVID-19 Vaccine (Low Dose Booster) Unknown Completed [facility] Moderna COVID-19 Vaccine Moderna COVID-19 Vaccine Unknown Completed [facility] Moderna COVID-19 Vaccine Moderna COVID-19 Vaccine Unknown Completed [facility] FluAD FluAD Unknown Completed [facility] FluAD FluAD Unknown Completed [facility] Fluzone Fluzone Unknown Completed [facility] Prevnar 20 (PCV20) Prevnar 20 (PCV20) Unknown Completed [facility] Moderna COVID-19 Vaccine (Low Dose Booster) Moderna COVID-19 Vaccine (Low Dose Booster) Unknown Completed [facility] Moderna COVID-19 Vaccine Moderna COVID-19 Vaccine Unknown Completed [facility] Moderna COVID-19 Vaccine Moderna COVID-19 Vaccine Unknown Completed [facility] FluAD FluAD Unknown Completed [facility] FluAD FluAD Unknown Completed [facility] Fluzone Fluzone Unknown Completed [facility] Prevnar 20 (PCV20) Prevnar 20 (PCV20) Unknown Completed [facility] Moderna COVID-19 Vaccine (Low Dose Booster) Moderna COVID-19 Vaccine (Low Dose Booster) Unknown Completed [facility] Moderna COVID-19 Vaccine Moderna COVID-19 Vaccine Unknown Completed [facility] Moderna COVID-19 Vaccine Moderna COVID-19 Vaccine Unknown Completed [facility] FluAD FluAD Unknown Completed [facility] FluAD FluAD Unknown Completed [facility] Fluzone Fluzone Unknown Completed [facility] Vital Signs Vital Name Observation Time Observation Value Comments S ource height 2022-11-12 14:00:00 65 [in_i] Commo n [facility] weight 2022-11-12 14:00:00 177.0 [lb_av] Co mmon [facility] temperature 2022-11-12 14:00:00 98.6 [degF] Com mon [facility] bmi 2022-11-12 14:00:00 29.45 kg/m2 Comm on [facility] oximetry 2022-11-12 14:00:00 98 % Commo n [facility] respiratory rate 2022-11-12 14:00:00 18 /min Common [facility] blood pressure systolic 2022-11-12 14:00:00 138 mm[facility]Hg[facility] blood pressure diastolic 2022-11-12 14:00:00 71 mm[Hg] [facility] height 2022-11-12 14:00:00 65 [in_i] Commo n [facility] weight 2022-11-12 14:00:00 177.0 [lb_av] Co mmon [facility] temperature 2022-11-12 14:00:00 98.6 [degF] Com [facility] bmi 2022-11-12 14:00:00 29.451 kg/m2 Com [facility] oximetry 2022-11-12 14:00:00 98 % Commo n [facility] respiratory rate 2022-11-12 14:00:00 18 /min Common [facility] blood pressure systolic 2022-11-12 14:00:00 138 mm[Hg] [facility] blood pressure diastolic 2022-11-12 14:00:00 71 mm[Hg] [facility] height 2022-09-03 13:45:00 65 [in_i] Commo n [facility] weight 2022-09-03 13:45:00 177 [lb_av] Comm on [facility] temperature 2022-09-03 13:45:00 98.4 [degF] Com [facility] bmi 2022-09-03 13:45:00 29.45 kg/m2 Comm on [facility] blood pressure systolic 2022-09-03 13:45:00 128 mm[Hg] Common [facility] blood pressure diastolic 2022-09-03 13:45:00 80 mm[Hg] [facility] height 2022-08-20 13:30:00 65 [in_i] Commo n [facility] weight 2022-08-20 13:30:00 177 [lb_av] Comm on [facility] temperature 2022-08-20 13:30:00 98.4 [degF] Com mon [facility] bmi 2022-08-20 13:30:00 29.45 kg/m2 Comm on [facility] blood pressure systolic 2022-08-20 13:30:00 128 mm[Hg] [facility] blood pressure diastolic 2022-08-20 13:30:00 80 mm[Hg] Common [facility] height 2022-08-05 14:00:00 65 [in_i] Commo n [facility] weight 2022-08-05 14:00:00 177 [lb_av] Comm on [facility] temperature 2022-08-05 14:00:00 97.6 [degF] Com [facility] bmi 2022-08-05 14:00:00 29.45 kg/m2 Comm on [facility] blood pressure systolic 2022-08-05 14:00:00 132 mm[Hg] Common [facility] blood pressure diastolic 2022-08-05 14:00:00 74 mm[Hg] Common [facility] height 2022-07-23 13:10:00 65 [in_i] Commo n [facility] weight 2022-07-23 13:10:00 179 [lb_av] Comm on [facility] temperature 2022-07-23 13:10:00 98.6 [degF] Com [facility] bmi 2022-07-23 13:10:00 29.78 kg/m2 Comm on [facility] oximetry 2022-07-23 13:10:00 97 % Commo n [facility] respiratory rate 2022-07-23 13:10:00 18 /min Common [facility] blood pressure systolic 2022-07-23 13:10:00 126 mm[Hg] [facility] blood pressure diastolic 2022-07-23 13:10:00 67 mm[Hg] [facility] height 2022-05-23 11:00:00 65 [in_i] Commo n [facility] weight 2022-05-23 11:00:00 177 [lb_av] Comm on [facility] temperature 2022-05-23 11:00:00 98.3 [degF] Com [facility] bmi 2022-05-23 11:00:00 29.45 kg/m2 Comm on [facility] blood pressure systolic 2022-05-23 11:00:00 136 mm[Hg] [facility] blood pressure diastolic 2022-05-23 11:00:00 74 mm[Hg] [facility] height 2022-04-23 13:10:00 65 [in_i] Commo n [facility] weight 2022-04-23 13:10:00 180.3 [lb_av] Co mmon [facility] temperature 2022-04-23 13:10:00 97.1 [degF] Com mon [facility] bmi 2022-04-23 13:10:00 30 kg/m2 Commo n [facility] oximetry 2022-04-23 13:10:00 99 % Commo n [facility] respiratory rate 2022-04-23 13:10:00 18 /min Common [facility] blood pressure systolic 2022-04-23 13:10:00 131 mm[Hg] [facility] blood pressure diastolic 2022-04-23 13:10:00 70 mm[Hg] [facility] height 2021-11-20 14:30:00 65 [in_i] Commo n [facility] weight 2021-11-20 14:30:00 178 [lb_av] Comm on [facility] temperature 2021-11-20 14:30:00 97.2 [degF] Com mon [facility] bmi 2021-11-20 14:30:00 29.62 kg/m2 Comm on [facility] blood pressure systolic 2021-11-20 14:30:00 138 mm[Hg] Common [facility] blood pressure diastolic 2021-11-20 14:30:00 78 mm[Hg] [facility] height 2021-11-06 15:00:00 65 [in_i] Commo n [facility] weight 2021-11-06 15:00:00 180 [lb_av] Comm on [facility] bmi 2021-11-06 15:00:00 29.95 kg/m2 Comm on [facility] blood pressure systolic 2021-11-06 15:00:00 136 mm[Hg] [facility] blood pressure diastolic 2021-11-06 15:00:00 74 mm[Hg] [facility] height 2021-10-22 14:30:00 65 [in_i] Commo n [facility] weight 2021-10-22 14:30:00 179 [lb_av] Comm on [facility] temperature 2021-10-22 14:30:00 98.6 [degF] Com [facility] bmi 2021-10-22 14:30:00 29.78 kg/m2 Comm on [facility] blood pressure systolic 2021-10-22 14:30:00 132 mm[Hg] Common [facility] blood pressure diastolic 2021-10-22 14:30:00 82 mm[Hg] [facility] height 2021-10-03 10:50:00 65 [in_i] Commo n [facility] weight 2021-10-03 10:50:00 178.9 [lb_av] Co mmon [facility] temperature 2021-10-03 10:50:00 98.2 [degF] Com mon [facility] bmi 2021-10-03 10:50:00 29.77 kg/m2 Comm on [facility] oximetry 2021-10-03 10:50:00 97 % Commo n [facility] respiratory rate 2021-10-03 10:50:00 17 /min Common [facility] blood pressure systolic 2021-10-03 10:50:00 138 mm[Hg] [facility] blood pressure diastolic 2021-10-03 10:50:00 62 mm[Hg] Common [facility] height 2021-05-23 08:20:00 65 [in_i] Commo n [facility] weight 2021-05-23 08:20:00 183 [lb_av] Comm on [facility] temperature 2021-05-23 08:20:00 97.5 [degF] Com mon [facility] bmi 2021-05-23 08:20:00 30.45 kg/m2 Comm on [facility] oximetry 2021-05-23 08:20:00 99 % Commo n [facility] respiratory rate 2021-05-23 08:20:00 16 /min Common [facility] blood pressure systolic 2021-05-23 08:20:00 147 mm[Hg] Common [facility] blood pressure diastolic 2021-05-23 08:20:00 67 mm[Hg] Common [facility] height 2021-02-20 09:40:00 65 [in_i] Commo n [facility] weight 2021-02-20 09:40:00 176.7 [lb_av] Co mmon [facility] temperature 2021-02-20 09:40:00 98.1 [degF] Com mon [facility] bmi 2021-02-20 09:40:00 29.4 kg/m2 Commo n [facility] oximetry 2021-02-20 09:40:00 99 % Commo n [facility] respiratory rate 2021-02-20 09:40:00 18 /min [facility] blood pressure systolic 2021-02-20 09:40:00 132 mm[Hg] [facility] blood pressure diastolic 2021-02-20 09:40:00 72 mm[Hg] [facility] Encounters Start Date/Time End Date/Time Encounter Type Admission Type Attending [facility] Care Department Encounter ID Source 2022-11-12 13:49:00 Outpatient Mahan, [facility] STL[facility] [id number] [facility] 2022-10-17 13:34:00 Outpatient Mahan, Alvino [facility] STLMLC [id number] [facility] 2022-08-08 08:25:00 Outpatient Mahan, Alvino [facility] STL[facility] [id number] [facility] 2022-07-18 15:51:00 Outpatient Mahan, Alvino [facility] STL[facility] [id number] [facility] 2022-07-17 09:58:00 Outpatient Mahan, Alvino [facility] STL[facility] [id number] [facility] 2022-05-23 11:12:00 Outpatient Mahan, Alvino STLMLC STLMLC [id number] [facility] 2022-05-21 14:31:00 Outpatient Mahan, Alvino STLMLC STLMLC [id number] [facility] 2022-04-23 13:11:00 Outpatient Mahan, Alvino [facility] STL[facility] [id number] [facility] 2021-10-22 14:42:01 Outpatient Mahan, Alvino STLMLC STLMLC [id number] [facility] [facility]13 14:02:00 Outpatient Mahan, Alvino STLMLC STLMLC [id number] [facility] 2021-05-23 08:04:01 Outpatient Mahan, Alvino STLMLC STLMLC [id number] [facility] 2021-04-25 14:22:13 Outpatient Mahan, Alvino STLMLC STLMLC [id number] [facility] 2021-04-25 14:19:17 Outpatient Mahan, Alvino STLMLC STLMLC [id number] [facility] 2021-04-25 14:16:47 Outpatient Mahan, Alvino STLMLC STLMLC [id number] [facility] 2021-04-25 12:52:45 Outpatient Mahan, Alvino STLMLC STLMLC [id number] [facility] 2021-04-25 12:49:23 Outpatient Mahan, Alvino STLMLC STLMLC [id number] [facility] 2021-04-25 12:20:19 Outpatient Mahan, Alvino STLMLC STLMLC [id number] [facility] 2021-04-25 11:19:29 Outpatient Mahan, Alvino STLMLC STLMLC [id number] [facility] 2021-04-25 11:18:31 Outpatient Mahan, Alvino STLMLC STLMLC [id number] [facility] 2021-04-25 11:02:40 Outpatient Mahan, Alvino STLMLC STLMLC [id number] [facility] 2022-11-12 00:00:00 2022-11-12 00:00:00 OFFICE VISIT ESTAB PT LEVEL 4 STLMLC STLMLC [id number] [facility] 2022-11-12 00:00:00 2022-11-12 00:00:00 SUB ANNUAL MCR WELLNESS VISIT STLMLC STLMLC [id number] [facility] 2022-09-03 00:00:00 2022-09-03 00:00:00 (IN/ASP) INJ ASP STLMLC STLMLC [id number] [facility] 2022-08-20 00:00:00 2022-08-20 00:00:00 OFFICE VISIT ESTAB PT LEVEL 4 STLMLC STLMLC [id number] [facility] 2022-08-19 00:00:00 2022-08-19 00:00:00 (TEL) STLMLC STLMLC [id number] [facility] 2022-08-05 00:00:00 2022-08-05 00:00:00 OFFICE VISIT ESTAB PT LEVEL 4 [facility] STLMLC [id number] [facility] 2022-07-23 00:00:00 2022-07-23 00:00:00 OFFICE VISIT ESTAB PT LEVEL 4 [facility]C STLMLC [id number] [facility] 2022-05-23 00:00:00 2022-05-23 00:00:00 OFFICE VISIT ESTAB PT LEVEL 4 STLMLC STLMLC [id number] [facility] 2022-05-21 00:00:00 2022-05-21 00:00:00 (TEL) STLMLC STLMLC [id number] [facility] 2022-04-23 00:00:00 2022-04-23 00:00:00 OFFICE VISIT ESTAB PT LEVEL 4 [facility]LMLC STLMLC [id number] [facility] 2021-11-20 00:00:00 2021-11-20 00:00:00 OFFICE VISIT ESTAB PT LEVEL 4 [facility]LMLC STLMLC [id number] [facility] 2021-11-06 00:00:00 2021-11-06 00:00:00 OFFICE VISIT ESTAB PT LEVEL 4 [facility]C STLMLC [id number] [facility] 2021-10-22 00:00:00 2021-10-22 00:00:00 OFFICE VISIT NEW PT LEVEL 4 [facility]LMLC STLMLC [id number] [facility] 2021-10-03 00:00:00 2021-10-03 00:00:00 OFFICE VISIT ESTAB PT LEVEL 4 [facility]LMLC STLMLC [id number] [facility] 2021-10-03 00:00:00 2021-10-03 00:00:00 SUB ANNUAL [facility] WELLNESS VISIT STLMLC STLMLC [id number] [facility] 2021-09-13 00:00:00 2021-09-13 00:00:00 (TEL) STLMLC STLMLC [id number] [facility] 2021-05-23 00:00:00 2021-05-23 00:00:00 OFFICE VISIT ESTAB PT LEVEL 4 STL[facility]C STLMLC [id number] [facility] 2021-02-28 00:00:00 2021-02-28 00:00:00 (COVID Inj) COVID Injection STLMLC STLMLC [id number] [facility] 2021-02-20 00:00:00 2021-02-20 00:00:00 OFFICE VISIT ESTAB PT LEVEL 4 STLMLC STLMLC [id number] [facility] 2020-10-16 00:00:00 2020-10-16 00:00:00 Outpatient STLMLC STLMLC [id number] [facility] 2020-07-13 00:00:00 2020-07-13 00:00:00 Outpatient STLMLC STLMLC [id number] [facility] 2020-04-14 00:00:00 2020-04-14 00:00:00 Outpatient STLMLC STLMLC [id number] [facility] 2020-04-14 00:00:00 2020-04-14 00:00:00 Outpatient STLMLC STLMLC [id number] [facility] 2020-04-13 00:00:00 2020-04-13 00:00:00 Outpatient STLMLC STLMLC [id number] [facility] 2020-04-13 00:00:00 2020-04-13 00:00:00 Outpatient STLMLC STLMLC [id number] [facility] 2020-01-27 00:00:00 2020-01-27 00:00:00 Outpatient STLMLC STLMLC [id number] [facility] 2019-10-27 14:15:00 2019-10-27 14:15:[address] [facility] [id number] [facility] 2019-07-28 14:30:00 2019-07-28 14:30:[address] [facility] [id number] [facility] 2019-04-29 13:15:00 2019-04-29 13:15:[address] [facility] [facility] [id number] [facility] 2019-02-03 10:00:00 2019-02-03 10:00:00 [facility] [id number] [facility] 2019-01-27 13:00:00 2019-01-27 13:00:00 [facility] [id number] [facility] 2018-09-23 13:15:00 2018-09-23 13:15:[address] [facility] [facility] [id number] [facility] 2018-07-06 16:00:00 2018-07-06 16:00:[address] [facility] [facility] [id number] [facility] Results Test Description Test Time Test Comments Results Result Co mments Source URIC [id number] 00:00:00* Test Item Value Reference Range Interpretation Comme nts URIC ACID (test code = 2501-5) 4.4 MG/DL See_Comment [Automated messa ge] The system which generated this result transmitted reference range: 3.7-8.0 MG/DL. The reference range was not used to interpret this result as normal/abnormal. HEMOGLOBIN [id number] 00:00:00* Test Item Value Reference Range Interpretation Comme [facility] HEMOGLOBIN A1c (test code = 4548-4) 6.0 % See_Comment H [Automated messa ge] The system which generated this result transmitted reference range: 4.2-5.6 %. The reference range was not used to interpret this result as normal/abnormal. LIPID [id number] 00:00:00* Test Item Value Reference Range Interpretation Comme [facility] CALC LDL CHOL (test code = 98995-4) 80 MG/DL See_Comment [Automated messa ge] The system which generated this result transmitted reference range: <100 MG/DL. The reference range was not used to interpret this result as normal/abnormal. CHOLESTEROL (test code = 2093-3) 149 MG/DL See_Comment [Automated messa ge] The system which generated this result transmitted reference range: <200 MG/DL. The reference range was not used to interpret this result as normal/abnormal. HDL CHOLESTEROL (test code = 2085-9) 48 MG/DL See_Comment [Automated messa ge] The system which generated this result transmitted reference range: >39 MG/DL. The reference range was not used to interpret this result as normal/abnormal. RISK RATIO LDL/HDL (test code = 68699-7) 1.67 RATIO See_Comment [Automated message] The system which generated this result transmitted reference range: <3.55 RATIO. The reference range was not used to interpret this result as normal/abnormal. TRIGLYCERIDES (test code = 2571-8) 112 MG/DL See_Comment [Automated messa ge] The system which generated this result transmitted reference range: <150 MG/DL. The reference range was not used to interpret this result as normal/abnormal. COMPREHENSIVE METABOLIC [id number] 00:00:00* Test Item Value Reference Range Interpretation [facility] (test code = 1751-7) 4.5 G/DL See_Comment [Automated messa ge] The system which generated this result transmitted reference range: 3.5-5.2 G/DL. The reference range was not used to interpret this result as normal/abnormal. ALKALINE PHOSPHATASE (test code = 6768-6) 106 U/L See_Comment [Automated message] The system which generated this result transmitted reference range: 40-125 U/L. The reference range was not used to interpret this result as normal/abnormal. BILIRUBIN, TOTAL (test code = 1975-2) 0.6 MG/DL See_Comment [Automated message] The system which generated this result transmitted reference range: <=1.2 MG/DL. The reference range was not used to interpret this result as normal/abnormal. BUN (test code = 3094-0) 21 MG/DL See_Comment [Automated messa ge] The system which generated this result transmitted reference range: 8-23 MG/DL. The reference range was not used to interpret this result as normal/abnormal. CALCIUM (test code = 75210-1) 10.2 MG/DL See_Comment [Automated messa ge] The system which generated this result transmitted reference range: 8.5-10.5 MG/DL. The reference range was not used to interpret this result as normal/abnormal. CALC A/G RATIO (test code = 1759-0) 1.3 RATIO See_Comment [Automated messa ge] The system which generated this result transmitted reference range: 1.0-2.6 RATIO. The reference range was not used to interpret this result as normal/abnormal. CALC BUN/CREAT (test code = 3097-3) 19 RATIO See_Comment [Automated messa ge] The system which generated this result transmitted reference range: 6-28 RATIO. The reference range was not used to interpret this result as normal/abnormal. CALC GLOBULIN (test code = 12439-7) 3.5 G/DL See_Comment [Automated messa ge] The system which generated this result transmitted reference range: 1.9-3.7 G/DL. The reference range was not used to interpret this result as normal/abnormal. CARBON DIOXIDE (test code = 1963-8) 24 MEQ/L See_Comment [Automated messa ge] The system which generated this result transmitted reference range: 19-31 MEQ/L. The reference range was not used to interpret this result as normal/abnormal. CHLORIDE (test code = 2075-0) 98 MEQ/L See_Comment [Automated messa ge] The system which generated this result transmitted reference range: 95-107 MEQ/L. The reference range was not used to interpret this result as normal/abnormal. CREATININE (test code = 2160-0) 1.11 MG/DL See_Comment [Automated messa ge] The system which generated this result transmitted reference range: 0.80-1.40 MG/DL. The reference range was not used to interpret this result as normal/abnormal. eGFR (2020 CKD-EPI) (test code = 89423-9) 63 ML/MIN/1.73 See_Comment [Automated messa ge] The system which generated this result transmitted reference range: >60 ML/MIN/1.73. The reference range was not used to interpret this result as normal/abnormal. GLUCOSE (test code = 1558-6) 130 MG/DL See_Comment H [Automated messa ge] The system which generated this result transmitted reference range: 70-99 MG/DL. The reference range was not used to interpret this result as normal/abnormal. POTASSIUM (test code = 2823-3) 5.0 MEQ/L See_Comment [Automated messa ge] The system which generated this result transmitted reference range: 3.5-5.4 MEQ/L. The reference range was not used to interpret this result as normal/abnormal. PROTEIN, TOTAL (test code = 2885-2) 8.0 G/DL See_Comment [Automated messa ge] The system which generated this result transmitted reference range: 6.1-8.3 G/DL. The reference range was not used to interpret this result as normal/abnormal. AST (test code = 1920-8) 15 U/L See_Comment [Automated messa ge] The system which generated this result transmitted reference range: 9-50 U/L. The reference range was not used to interpret this result as normal/abnormal. ALT (test code = 1742-6) 21 U/L See_Comment [Automated messa ge] The system which generated this result transmitted reference range: 5-50 U/L. The reference range was not used to interpret this result as normal/abnormal. SODIUM (test code = 2951-2) 138 MEQ/L See_Comment [Automated messa ge] The system which generated this result transmitted reference range: 133-146 MEQ/L. The reference range was not used to interpret this result as normal/abnormal. CBC W/AUTO [id number] 00:00:00* Test Item Value Reference Range Interpretation Comme nts NUCLEATED RBCS (test code = 88252-8) 0.0 /100 WBC'S See_Comment [Automated messa ge] The system which generated this result transmitted reference range: 0.0 /100 WBC'S. The reference range was not used to interpret this result as normal/abnormal. ABSOLUTE EOSINOPHILS (test code = 03604-8) 0.20 K/UL See_Comment [Automated messa ge] The system which generated this result transmitted reference range: 0.00-0.50 K/UL. The reference range was not used to interpret this result as normal/abnormal. ABSOLUTE LYMPHOCYTES (test code = 24396-6) 2.40 K/UL See_Comment [Automated messa ge] The system which generated this result transmitted reference range: 1.00-4.00 K/UL. The reference range was not used to interpret this result as normal/abnormal. ABSOLUTE MONOCYTES (test code = 25929-6) 0.76 K/UL See_Comment [Automated messa ge] The system which generated this result transmitted reference range: 0.20-1.00 K/UL. The reference range was not used to interpret this result as normal/abnormal. ABSOLUTE NEUTROPHILS (test code = 17134-2) 6.03 K/UL See_Comment [Automated messa ge] The system which generated this result transmitted reference range: 1.50-7.50 K/UL. The reference range was not used to interpret this result as normal/abnormal. BASOPHILS (test code = 81655-2) 0.7 % EOSINOPHILS (test code = 60897-7) 2.1 % HEMATOCRIT (test code = 16577-3) 43.5 % See_Comment [Automated messa ge] The system which generated this result transmitted reference range: 40.0-51.0 %. The reference range was not used to interpret this result as normal/abnormal. HEMOGLOBIN (test code = 718-7) 14.8 G/DL See_Comment [Automated messa ge] The system which generated this result transmitted reference range: 13.5-17.0 G/DL. The reference range was not used to interpret this result as normal/abnormal. LYMPHOCYTES (test code = 99987-1) 25.0 % MCH (test code = 47806-2) 32.0 PG See_Comment [Automated messa ge] The system which generated this result transmitted reference range: 25.0-33.0 PG. The reference range was not used to interpret this result as normal/abnormal. MCHC (test code = 21058-4) 34.0 G/DL See_Comment [Automated messa ge] The system which generated this result transmitted reference range: 31.0-36.0 G/DL. The reference range was not used to interpret this result as normal/abnormal. MCV (test code = 55712-0) 94.2 fL See_Comment [Automated messa ge] The system which generated this result transmitted reference range: 80.0-99.0 fL. The reference range was not used to interpret this result as normal/abnormal. MONOCYTES (test code = 78743-7) 7.9 % NEUTROPHILS (test code = 47168-3) 62.9 % PLATELET COUNT (test code = 80037-3) 289 K/UL See_Comment [Automated messa ge] The system which generated this result transmitted reference range: 130-400 K/UL. The reference range was not used to interpret this result as normal/abnormal. RBC (test code = 48431-9) 4.62 M/UL See_Comment [Automated messa ge] The system which generated this result transmitted reference range: 4.50-6.10 M/UL. The reference range was not used to interpret this result as normal/abnormal. RDW (test code = 76909-9) 13.0 % See_Comment [Automated messa ge] The system which generated this result transmitted reference range: 11.5-15.0 %. The reference range was not used to interpret this result as normal/abnormal. WBC (test code = 87029-6) 9.6 K/UL See_Comment [Automated messa ge] The system which generated this result transmitted reference range: 3.5-11.0 K/UL. The reference range was not used to interpret this result as normal/abnormal. [id number] 00:00:00* Test Item Value Reference Range Interpretation Comme nts MAGNESIUM (test code = 42090-4) 1.9 MG/DL See_Comment [Automated messa ge] The system which generated this result transmitted reference range: 1.6-2.6 MG/DL. The reference range was not used to interpret this result as normal/abnormal. URIC [id number] 00:00:00* Test Item Value Reference Range Interpretation [facility] URIC ACID (test code = 2501-5) 4.8 MG/DL See_Comment [Automated backstitcha ge] The system which generated this result transmitted reference range: 3.7-8.0 MG/DL. The reference range was not used to interpret this result as normal/abnormal. HEMOGLOBIN [id number] 00:00:00* Test Item Value Reference Range Interpretation [facility] HEMOGLOBIN A1c (test code = 4548-4) 6.4 % See_Comment H [Automated backstitcha ge] The system which generated this result transmitted reference range: 4.2-5.6 %. The reference range was not used to interpret this result as normal/abnormal. LIPID [id number] 00:00:00* Test Item Value Reference Range Interpretation [facility] CALC LDL CHOL (test code = 08919-4) 93 MG/DL See_Comment [Automated backstitcha ge] The system which generated this result transmitted reference range: <100 MG/DL. The reference range was not used to interpret this result as normal/abnormal. CHOLESTEROL (test code = 2093-3) 159 MG/DL See_Comment [Automated backstitcha ge] The system which generated this result transmitted reference range: <200 MG/DL. The reference range was not used to interpret this result as normal/abnormal. HDL CHOLESTEROL (test code = 2085-9) 46 MG/DL See_Comment [Automated backstitcha ge] The system which generated this result transmitted reference range: >39 MG/DL. The reference range was not used to interpret this result as normal/abnormal. RISK RATIO LDL/HDL (test code = 21727-9) 2.02 RATIO See_Comment [Automated message] The system which generated this result transmitted reference range: <3.55 RATIO. The reference range was not used to interpret this result as normal/abnormal. TRIGLYCERIDES (test code = 2571-8) 105 MG/DL See_Comment [Automated backstitcha ge] The system which generated this result transmitted reference range: <150 MG/DL. The reference range was not used to interpret this result as normal/abnormal. ALBUMIN/CREATININE RATIO, RANDOM [id number] 00:00:00* Test Item Value Reference Range Interpretation Comme nts ALBUMIN, URINE, RANDOM (test code = 12237-5) 2.3 MG/DL NOT ESTAB MG/DL CALC ALBUMIN/CREAT, RND (test code = 60354-4) 17 MG/G See_Comment [Automated messa ge] The system which generated this result transmitted reference range: <30 MG/G. The reference range was not used to interpret this result as normal/abnormal. CREATININE, URINE, CONC. (test code = 2161-8) 133.2 MG/DL NOT ESTAB MG/DL COMPREHENSIVE METABOLIC [id number] 00:00:00* Test Item Value Reference Range Interpretation Comme nts ALBUMIN (test code = 1751-7) 4.1 G/DL See_Comment [Automated messa ge] The system which generated this result transmitted reference range: 3.5-5.2 G/DL. The reference range was not used to interpret this result as normal/abnormal. ALKALINE PHOSPHATASE (test code = 6768-6) 83 U/L See_Comment [Automated message] The system which generated this result transmitted reference range: 40-125 U/L. The reference range was not used to interpret this result as normal/abnormal. BILIRUBIN, TOTAL (test code = 1975-2) 0.5 MG/DL See_Comment [Automated message] The system which generated this result transmitted reference range: <=1.2 MG/DL. The reference range was not used to interpret this result as normal/abnormal. BUN (test code = 3094-0) 18 MG/DL See_Comment [Automated messa ge] The system which generated this result transmitted reference range: 8-23 MG/DL. The reference range was not used to interpret this result as normal/abnormal. CALCIUM (test code = 99290-1) 9.7 MG/DL See_Comment [Automated messa ge] The system which generated this result transmitted reference range: 8.5-10.5 MG/DL. The reference range was not used to interpret this result as normal/abnormal. CALC A/G RATIO (test code = 1759-0) 1.4 RATIO See_Comment [Automated messa ge] The system which generated this result transmitted reference range: 1.0-2.6 RATIO. The reference range was not used to interpret this result as normal/abnormal. CALC BUN/CREAT (test code = 3097-3) 18 RATIO See_Comment [Automated messa ge] The system which generated this result transmitted reference range: 6-28 RATIO. The reference range was not used to interpret this result as normal/abnormal. CALC GLOBULIN (test code = 95741-8) 3.0 G/DL See_Comment [Automated messa ge] The system which generated this result transmitted reference range: 1.9-3.7 G/DL. The reference range was not used to interpret this result as normal/abnormal. CARBON DIOXIDE (test code = 1963-8) 22 MEQ/L See_Comment [Automated messa ge] The system which generated this result transmitted reference range: 19-31 MEQ/L. The reference range was not used to interpret this result as normal/abnormal. CHLORIDE (test code = 2075-0) 101 MEQ/L See_Comment [Automated messa ge] The system which generated this result transmitted reference range: 95-107 MEQ/L. The reference range was not used to interpret this result as normal/abnormal. CREATININE (test code = 2160-0) 1.00 MG/DL See_Comment [Automated messa ge] The system which generated this result transmitted reference range: 0.80-1.40 MG/DL. The reference range was not used to interpret this result as normal/abnormal. eGFR (2020 CKD-EPI) (test code = 79072-4) 72 ML/MIN/1.73 See_Comment [Automated messa ge] The system which generated this result transmitted reference range: >60 ML/MIN/1.73. The reference range was not used to interpret this result as normal/abnormal. GLUCOSE (test code = 1558-6) 111 MG/DL See_Comment H [Automated messa ge] The system which generated this result transmitted reference range: 70-99 MG/DL. The reference range was not used to interpret this result as normal/abnormal. POTASSIUM (test code = 2823-3) 4.6 MEQ/L See_Comment [Automated messa ge] The system which generated this result transmitted reference range: 3.5-5.4 MEQ/L. The reference range was not used to interpret this result as normal/abnormal. PROTEIN, TOTAL (test code = 2885-2) 7.1 G/DL See_Comment [Automated messa ge] The system which generated this result transmitted reference range: 6.1-8.3 G/DL. The reference range was not used to interpret this result as normal/abnormal. AST (test code = 1920-8) 19 U/L See_Comment [Automated messa ge] The system which generated this result transmitted reference range: 9-50 U/L. The reference range was not used to interpret this result as normal/abnormal. ALT (test code = 1742-6) 22 U/L See_Comment [Automated messa ge] The system which generated this result transmitted reference range: 5-50 U/L. The reference range was not used to interpret this result as normal/abnormal. SODIUM (test code = 2951-2) 139 MEQ/L See_Comment [Automated messa ge] The system which generated this result transmitted reference range: 133-146 MEQ/L. The reference range was not used to interpret this result as normal/abnormal. HEMOGLOBIN [id number] 00:00:00* Test Item Value Reference Range Interpretation Comme nts A1C (test code = 4548-4) 6.5 HEMOGLOBIN [id number] 00:00:00* Test Item Value Reference Range Interpretation Comme nts A1C (test code = 4548-4) 5.8
--- NOTE | 2023-03-22 14:57 | RAD REPORT ---
EXAM DESCRIPTION: CT - Head C Spine Mpr Wo Con - 03/22/2023 2:40 pm CLINICAL HISTORY: Headache status post fall. Head and neck injury status post fall. Head and neck pa in COMPARISON: January 2023 TECHNIQUE: Computed axial tomography of the head and cervical spine was obtained. Sagittal and coronal reconstruction was performed. All CT scans are performed using dose optimization technique as appropriate and may include automated exposure control or mA/KV adjustment according to patient size. FINDINGS: Posterior scalp swelling. An intracranial bleed is not seen. The ventricles are normal in caliber. No significant hypodensity within the brain. An extra-axial fluid collection is not noted. Fluid within the visualized sinuses and mastoids is not seen A cervical fracture is not visualized. No dislocation is noted. 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 Spondylosis cervical spine IMPRESSION: No acute intracranial abnormality is seen. A cervical fracture is not visualized. If the patient continues to have symptoms to suggest intracranial /spinal cord pathology then MRI wou ld be recommended
--- NOTE | 2023-03-22 14:59 | RAD REPORT ---
EXAM DESCRIPTION: [facility] Single View03/22/2023 2:45 pm CLINICAL HISTORY: cough COMPARISON: none FINDINGS: Patient's known left upper lobe nodule not clearly seen on this exam. The lungs appear clear of acute infiltrate. The heart is normal size
--- NOTE | 2023-03-22 15:49 | EDPHYS ---
Physician Documentation [facility] Name: Francis Goncalves Age: 87 yrs Sex: Male : 1935 Arrival Date: 03/22/2023 Time: 14:14 Bed 10 Private MD: ED Physician Edmund Mccrary HPI: 03/22 15:40 This 87 yrs old Male presents to ER via EMS with complaints of Headache. mariam 15:40 The patient complains of pain to the left side of the back of head, left occipital mariam area, right side of the back of head and right occipital area. The patient describes the headache as aching. Onset: The symptoms/episode began/occurred 2 week(s) ago. Associated signs and symptoms: The patient has no apparent associated signs or symptoms. Severity of symptoms: At its worst the pain was mild, in the emergency department the pain is unchanged. Headache History: The patient has had previous headaches and this one is similar to previous episodes. The symptoms are alleviated by nothing. the symptoms are aggravated by nothing. The patient has not experienced similar symptoms in the past. Historical: - Allergies: 14:18 No Known Allergies; hb - PMHx: 14:18 Diabetes - NIDDM; Hypertension; hb - Immunization history:: Adult Immunizations up to date. - Social history:: Smoking status: Patient denies any tobacco usage or history of. ROS: 15:43 Constitutional: Negative for fever, chills, and weight loss, Eyes: Negative for injury, mariam pain, redness, and discharge, ENT: Negative for injury, pain, and discharge, Neck: Negative for injury, pain, and swelling, Cardiovascular: Negative for chest pain, palpitations, and edema, Respiratory: Negative for shortness of breath, cough, wheezing, and pleuritic chest pain, Abdomen/GI: Negative for abdominal pain, nausea, vomiting, diarrhea, and constipation, Back: Negative for injury and pain, : Negative for injury, bleeding, discharge, and swelling, MS/Extremity: Negative for injury and deformity, Skin: Negative for injury, rash, and discoloration, Psych: Negative for depression, anxiety, suicide ideation, homicidal ideation, and hallucinations, Allergy/Immunology: Negative for hives, rash, and allergies, Endocrine: Negative for neck swelling, polydipsia, polyuria, polyphagia, and marked weight changes, Hematologic/Lymphatic: Negative for swollen nodes, abnormal bleeding, and unusual bruising, 15:43 Neuro: Positive for headache, Exam: 15:43 Constitutional: This is a well developed, well nourished patient who is awake, alert, mariam and in no acute distress. Eyes: Pupils equal round and reactive to light, extra-ocular motions intact. Lids and lashes normal. Conjunctiva and sclera are non-icteric and not injected. Cornea within normal limits. Periorbital areas with no swelling, redness, or edema. ENT: Nares patent. No nasal discharge, no septal abnormalities noted. Tympanic membranes are normal and external auditory canals are clear. Oropharynx with no redness, swelling, or masses, exudates, or evidence of obstruction, uvula midline. Mucous membranes moist. Neck: Trachea midline, no thyromegaly or masses palpated, and no cervical lymphadenopathy. Supple, full range of motion without nuchal rigidity, or vertebral point tenderness. No Meningismus. Chest/axilla: Normal chest wall appearance and motion. Nontender with no deformity. No lesions are appreciated. Cardiovascular: Regular rate and rhythm with a normal S1 and S2. No gallops, murmurs, or rubs. Normal PMI, no JVD. No pulse deficits. Respiratory: Lungs have equal breath sounds bilaterally, clear to auscultation and percussion. No rales, rhonchi or wheezes noted. No increased work of breathing, no retractions or nasal flaring. Abdomen/GI: Soft, non-tender, with normal bowel sounds. No distension or tympany. No guarding or rebound. No evidence of tenderness throughout. Back: No spinal tenderness. No costovertebral tenderness. Full range of motion. Male : Normal genitalia with no discharge or lesions. Skin: Warm, dry with normal turgor. Normal color with no rashes, no lesions, and no evidence of cellulitis. MS/ Extremity: Pulses equal, no cyanosis. Neurovascular intact. Full, normal range of motion. Neuro: Awake and alert, GCS 15, oriented to person, place, time, and situation. Cranial nerves II-XII grossly intact. Motor strength 5/5 in all extremities. Sensory grossly intact. Cerebellar exam normal. Normal gait. Psych: Awake, alert, with orientation to person, place and time. Behavior, mood, and affect are within normal limits. 15:43 Head/face: Noted is a laceration(s), rash, Vital Signs: 14:16 BP 156 / 85; Pulse 82; Resp 16; Temp 98.8(O); Pulse Ox 100% on R/A; Weight 81.65 kg; hb Height 5 ft. 9 in. ; Pain 4/10; 16:28 BP 140 / 80; Pulse 65; Pulse Ox 98% on R/A; ap3 14:16 Body Mass Index 26.58 (81.65 kg, 175.26 cm) hb 14:16 Pain Scale: Adult hb [place] Coma Score: 15:43 Eye Response: spontaneous(4). Motor Response: obeys commands(6). Verbal Response: mariam oriented(5). Total: 15. Procedures: 15:43 Suture/Staple removal: Removed 5 sutures, from right side of the back of head, site mariam appears well healed, dressed with Neosporin, Patient tolerated well. MDM: 14:20 Patient medically screened. mariam 15:43 Differential diagnosis: intracerebral hemorrhage, migraine, neoplasm, subarachnoid mariam bleed, temporal arteritis, tension headache, traumatic injuries. Data reviewed: vital signs, nurses notes, radiologic studies, CT scan. Consideration of Admission/Observation Escalation of care including admission/observation considered. I considered the following discharge prescriptions or medication management in the emergency department Medications were administered in the Emergency Department. See MAR. Test considered but Not performed: Labs: NO LABS. Historians other than the Patient: Friend: . 03/22 14:21 Order name: XRAY Chest (1 view); Complete Time: 15:39 [facility] 03/22 14:21 Order name: CT Head C Spine; Complete Time: 15:39 [facility] 03/22 14:21 Order name: EKG; Complete Time: 14:22 [facility] 03/22 14:21 Order name: O2 Sat Monitoring; Complete Time: 16:05 [facility] 03/22 14:21 Order name: Suture Removal; Complete Time: 16:05 mariam Administered Medications: 16:05 Not Given (Physician Discretion): ns 0.9% 500 ml IV at bolus once ap3 Disposition Summary: 03/22/23 15:48 Discharge Ordered Notes: Location: Home mariam Problem: new mariam Symptoms: have improved mariam Condition: Stable mariam Diagnosis - Encounter for removal of sutures mariam Followup: mariam - With: Private Physician - When: 2 - 3 days - Reason: Recheck today's complaints, Continuance of care, Re-evaluation by your physician Discharge Instructions: - Discharge Summary Sheet mariam - Suture Removal, Care After mariam - Incision Care, Adult [facility] Forms: - Medication Reconciliation Form mariam - Thank You Letter mariam - Antibiotic Education mariam - Prescription Opioid Use mariam - Patient Portal Instructions mariam - Leadership Thank You Letter [facility] Signatures: Dispatcher [employer] EDEdmund Perea MD MD cha Baxter, Heather, RN RN hb Prokisch, Amanda RN ap3 Corrections: (The following items were deleted from the chart) 15:40 14:21 Cardiac monitoring ordered. [facility] 15:40 14:21 EKG - Nurse/Tech ordered. [facility] 15:40 14:21 IV Saline Lock ordered. [facility] 15:40 14:21 Oxygen Per Protocol ordered. [facility] 16:05 14:21 Labs collected and sent ordered. [facility] ap3
--- NOTE | 2023-03-22 15:49 | ER ---
Nurse's Notes [facility] Name: Francis Goncalves Age: 87 yrs Sex: Male : 1935 Arrival Date: 03/22/2023 Time: 14:14 Bed 10 Private MD: Diagnosis: Encounter for removal of sutures Presentation: 03/22 14:16 Chief complaint: EMS states: Intermittent headache after fall 3 weeks ago. Pain is hb described as throbbing and mostly located near sutured area in back of head. Coronavirus screen: At this time, the client does not indicate any symptoms associated with coronavirus-19. Ebola Screen: No symptoms or risks identified at this time. Initial Sepsis Screen: Does the patient meet any 2 criteria? No. Patient's initial sepsis screen is negative. Does the patient have a suspected source of infection? No. Patient's initial sepsis screen is negative. Risk Assessment: Do you want to hurt yourself or someone else? Patient reports no desire to harm self or others. Onset of symptoms was March 01, 2023. 14:16 Method Of Arrival: EMS: [facility] 14:16 Acuity: DELL 3 hb Triage Assessment: 14:18 Headache History: Denies prior headaches. General: Appears in no apparent distress. hb Behavior is calm, cooperative. Pain: Pain currently is 4 out of 10 on a pain scale. EENT: No signs and/or symptoms were reported regarding the EENT system. Neuro: Level of Consciousness is awake, alert, obeys commands, Oriented to person, place, time, situation. Cardiovascular: Patient's skin is warm and dry. Respiratory: Respiratory effort is even, unlabored, Respiratory pattern is regular, symmetrical. GI: No signs and/or symptoms were reported involving the gastrointestinal system. : No signs and/or symptoms were reported regarding the genitourinary system. Derm: Skin is pink, warm \T\ dry. Musculoskeletal: No signs and/or symptoms reported regarding the musculoskeletal system. Historical: - Allergies: 14:18 No Known Allergies; hb - PMHx: 14:18 Diabetes - NIDDM; Hypertension; hb - Immunization history:: Adult Immunizations up to date. - Social history:: Smoking status: Patient denies any tobacco usage or history of. Screenin:19 [facility] Fall Risk Assessment (Adult) Score/Fall Risk Level 0 - 2 = Low Risk hb Oriented to surroundings, Maintained a safe environment, Educated pt \T\ family on fall prevention, incl call for assistance when getting out of bed. Abuse screen: Denies threats or abuse. Denies injuries from another. Nutritional screening: No deficits noted. Tuberculosis screening: No symptoms or risk factors identified. Assessment: 14:19 General: See triage assessment. hb Vital Signs: 14:16 BP 156 / 85; Pulse 82; Resp 16; Temp 98.8(O); Pulse Ox 100% on R/A; Weight 81.65 kg; hb Height 5 ft. 9 in. ; Pain 4/10; 16:28 BP 140 / 80; Pulse 65; Pulse Ox 98% on R/A; ap3 14:16 Body Mass Index 26.58 (81.65 kg, 175.26 cm) hb 14:16 Pain Scale: Adult hb [place] Coma Score: 15:43 Eye Response: spontaneous(4). Motor Response: obeys commands(6). Verbal Response: mariam oriented(5). Total: 15. ED Course: 14:16 Patient arrived in ED. hb 14:18 Triage completed. hb 14:18 Arm band placed on. hb 14:19 Patient has correct armband on for positive identification. Provided Education on: hb tests, result times. 14:19 No provider procedures requiring assistance completed. hb 14:20 Edmund Mccrary MD is Attending Physician. mariam 14:41 CT Head C Spine In Process Unspecified. EDMS 14:46 XRAY Chest (1 view) In Process Unspecified. EDMS 16:28 Patient did not have IV access during this emergency room visit. ap3 Administered Medications: 16:05 Not Given (Physician Discretion): ns 0.9% 500 ml IV at bolus once ap3 Medication: 14:19 VIS not applicable for this client. hb Outcome: 15:48 Discharge ordered by . mariam 16:28 Discharged to home ambulatory, ap3 16:28 Condition: good 16:28 Discharge instructions given to patient, Instructed on discharge instructions, follow up and referral plans. Demonstrated understanding of instructions, follow-up care, 16:28 Patient left the ED. ap3 Signatures: Dispatcher [employer] EDFL Edmund Mccrary MD MD cha Baxter, Heather, RN RN Sherron Jackson RN RN ap3
[2023-03-22 17:34] VITALS: BP 140/80; TEMP 98.8; O2SAT 98
== END ==
LOC: ER 14:14
DX: Z48.02 Encounter for removal of sutures (principal); R51.9 Headache, unspecified; I10 Essential (primary) hypertension; E11.9 Type 2 diabetes mellitus without complications
CPT/HCPCS: 70450; 71045; 72125; 99283